=== PATIENT | female | born 1960 | race Two or more races ===

== ENCOUNTER 2023-06-26 13:36 | Outpatient (AMB) | payer MEDICAID, SELFPAY ==
[2023-06-26 14:09] VITALS: BP 150/90; PULSE 81; O2SAT 96; BMI 29.9
--- NOTE | 2023-06-26 14:09 | HO.NEPHOV ---
HPI HPI Comments History of Present Illness Details Thank you for referring Alba for evaluation of severe electrolyte imbalance. 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 She has history of distal SMA occlusion. She has been found to have persistent low potassium, low calcium and low magnesium. She also has chronic diarrhea since bowel resection. Her blood pressure has been high normal. She denies any nausea, vomiting. She is not known to have urinary losses. Her diarrhea is better on loperamide. She is on calcium, magnesium and potassium replacements. She is also on PPI. She has no history of excess alcohol intake. She has no chest pain, shortness of breath, proximal nocturnal dyspnea, orthopnea or pedal edema. She denied any other systemic complaints. 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) Surgical History (Updated 06/26/23 @ 14:05 by Ethel Benson MA) History of tubal ligation H/O resection of small bowel Family History (Updated 06/26/23 @ 14:06 by Ethel Benson MA) Mother Alzheimer disease Father Stroke Myocardial infarct Social History (Updated 06/26/23 @ 14:07 by Ethel Benson MA) Patient Tobacco Use Status: Current everyday Tobacco user Vital Signs 06/26/23 14:09 Height 5 ft 2 in Weight 163 lb 8 oz BMI 29.9 BP 150/90 H Blood Pressure Location Rt brachial Position Sitting Pulse 81 Pulse Source Pulse Oximeter Pulse Oximetry (%) 96 Oxygen Delivery Method Room Air Physical Exam Vital Signs: Last Vital Signs Pulse 81 06/26/23 14:09 BP 150/90 H 06/26/23 14:09 Pulse Ox 96 06/26/23 14:09 Oxygen Delivery Method Room Air 06/26/23 14:09 BMI result Body Mass Index 29.9 Const General: comfortable and no acute distress Orientation/consciousness: patient oriented x3 HEENT Head: Yes normocephalic Mouth: Normal oral and palatal mucosa present Eyes EOM: EOMs intact bilaterally Neck Neck: Yes supple Resp Auscultation: clear to auscultation bilaterally Cardio Jugular venous distension: no JVD Rate: regular rate GI Palpation (GI): Soft to palpation Auscultation: normal bowel sounds General: Yes no CVA tenderness Back/Spine/Pelvis Back: no CVA tenderness Skin General skin exam: no rashes or lesions noted Neuro General: patient oriented x3 and moves all extremities Extrem General: Yes no pedal edema Assessment & Plan Assessment & Plan (1) Hypokalemia: Code(s): E87.6 - Hypokalemia (2) Hypocalcemia: Code(s): E83.51 - Hypocalcemia (3) Hypomagnesemia: Code(s): E83.42 - Hypomagnesemia Plan Alba has multiple electrolyte abnormalities most likely due to GI loss. She has been having diarrhea. Her renal function normal. She is taking calcium, magnesium and potassium supplements. I ordered blood work. It is unlikely that she is having renal losses. I asked her to increase her loperamide. Her potassium supplementation was increased to 20 mEq twice daily. She is going to repeat blood work in a few weeks. Given her blood pressure is high normal/borderline high, I plan to start her on spironolactone and wean her off potassium supplementation. She needs to increase free water intake as well. Her serum albumin is low and I suggested to increase protein intake. She most likely has malabsorption. She needs to follow-up with needle loom operator helper. I did not make any other medication changes at this visit. All her questions and concerns were addressed. Time spent retrieving data, patient encounter and recommendation 49 minutes. Follow-up given. Orders: Orders Blood Urea Nitrogen Today E87.6 - Hypokalemia Electrolytes Today E87.6 - Hypokalemia Aldosterone Today E87.6 - Hypokalemia Creatinine Today E87.6 - Hypokalemia Magnesium Today E87.6 - Hypokalemia Coding Level of Care Code New Pt Level 4 (94420) Diagnoses Hypokalemia E87.6 Hypocalcemia E83.51 Hypomagnesemia E83.42 Results Reviewed Nephrology Results: No Data to Display
== END 2023-06-26 14:50 | disposition home or self-care (01) ==
PROVIDERS: PCP Internal Medicine; Visit Provider Internal Medicine Nephrology
DX: E87.6 Hypokalemia (principal); E83.51 Hypocalcemia; E83.42 Hypomagnesemia
CPT/HCPCS: 99204

== ENCOUNTER → 2023-06-26 13:36 | Outpatient (BNVA) | payer MEDICAID, SELFPAY | PROVIDERS: PCP Internal Medicine; Visit Provider Internal Medicine Nephrology | DX: E87.6 Hypokalemia (principal); E83.51 Hypocalcemia; E83.42 Hypomagnesemia | CPT/HCPCS: 99202 ==

== ENCOUNTER 2023-07-16 13:40 | Outpatient (REF) | payer MEDICAID, SELFPAY | END 2023-07-16 13:41 | disposition home or self-care (01) | LOC: HO.HKASLDS 13:40 | PROVIDERS: Visit Provider Internal Medicine Nephrology | DX: E87.6 Hypokalemia (principal) | CPT/HCPCS: 36415; 80051; 82088; 82565; 83735; 84520 ==

== ENCOUNTER 2023-07-24 13:42 | Outpatient (AMB) | payer MEDICAID, SELFPAY ==
[2023-07-24 13:49] VITALS: BP 130/80; PULSE 89; O2SAT 99; BMI 29.7
--- NOTE | 2023-07-24 13:49 | HO.NEPHOV ---
HPI HPI Comments History of Present Illness Details Alba was seen for follow up of severe electrolyte imbalance. 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 She has history of distal SMA occlusion. She has been found to have persistent low potassium, low calcium and low magnesium. She also has chronic diarrhea since bowel resection which has been better with medication change. She denies any nausea, vomiting. She is not known to have urinary losses. Her diarrhea is better on loperamide. She is on calcium, magnesium and potassium replacements. She is also on PPI. She has no history of excess alcohol intake. She has no chest pain, shortness of breath, proximal nocturnal dyspnea, orthopnea or pedal edema. She denied any other systemic complaints. 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) Surgical History History of tubal ligation H/O resection of small bowel Family History Mother Alzheimer disease Father Stroke Myocardial infarct Social History Patient Tobacco Use Status: Current everyday Tobacco user Vital Signs 07/24/23 13:49 Height 5 ft 2 in Weight 162 lb 8 oz BMI 29.7 BP 130/80 Blood Pressure Location Lt brachial Position Sitting Pulse 89 Pulse Source Pulse Oximeter Pulse Oximetry (%) 99 Oxygen Delivery Method Room Air Physical Exam Vital Signs: Last Vital Signs Pulse 89 07/24/23 13:49 BP 130/80 07/24/23 13:49 Pulse Ox 99 07/24/23 13:49 Oxygen Delivery Method Room Air 07/24/23 13:49 BMI result Body Mass Index 29.7 Const General: comfortable and no acute distress Orientation/consciousness: patient oriented x3 HEENT Head: Yes normocephalic Mouth: Normal oral and palatal mucosa present Eyes EOM: EOMs intact bilaterally Neck Neck: Yes supple Resp Auscultation: clear to auscultation bilaterally Cardio Jugular venous distension: no JVD Rate: regular rate GI Palpation (GI): Soft to palpation Auscultation: normal bowel sounds General: Yes no CVA tenderness Back/Spine/Pelvis Back: no CVA tenderness Skin General skin exam: no rashes or lesions noted Neuro General: patient oriented x3 and moves all extremities Extrem General: Yes no pedal edema Assessment & Plan Assessment & Plan (1) Hypomagnesemia: Code(s): E83.42 - Hypomagnesemia (2) Hypocalcemia: Code(s): E83.51 - Hypocalcemia (3) Hypokalemia: Code(s): E87.6 - Hypokalemia Plan Alba has multiple electrolyte abnormalities most likely due to GI loss. She has been having diarrhea. Her renal function normal. She is taking calcium, magnesium and potassium supplements. It is unlikely that she is having renal losses. I asked her to increase her loperamide. Her potassium supplementation was increased to 20 mEq twice daily. She is going to repeat blood work . Given her blood pressure is high normal/borderline high, I plan to start her on spironolactone and wean her off potassium supplementation with time. She needs to increase free water intake as well. Her serum albumin is low and I suggested to increase protein intake. She most likely has malabsorption. She needs to follow-up with leather goods maker. I did not make any other medication changes at this visit. All her questions and concerns were addressed. Orders: Orders Electrolytes Today E83.42 - Hypomagnesemia, E83.51 - Hypocalcemia, E87.6 - Hypokalemia Calcium Today E83.42 - Hypomagnesemia, E83.51 - Hypocalcemia, E87.6 - Hypokalemia Blood Urea Nitrogen Today E83.42 - Hypomagnesemia, E83.51 - Hypocalcemia, E87.6 - Hypokalemia Creatinine Today E83.42 - Hypomagnesemia, E83.51 - Hypocalcemia, E87.6 - Hypokalemia Magnesium Today E83.42 - Hypomagnesemia, E83.51 - Hypocalcemia, E87.6 - Hypokalemia Coding Level of Care Code Est Pt Level 3 (55296) Diagnoses Hypomagnesemia E83.42 Hypocalcemia E83.51 Hypokalemia E87.6 Results Reviewed Nephrology Results: Sodium 142 mmol/L (135-145) 07/16/23 Potassium 3.7 mmol/L (3.3-5.1) 07/16/23 Chloride 111 mmol/L (96-108) H 07/16/23 Carbon Dioxide 25 mmol/L (22-29) 07/16/23 BUN 15 mg/dL (9-16) 07/16/23 Creatinine 0.86 mg/dL (0.5-1.4) 07/16/23
== END 2023-07-24 14:03 | disposition home or self-care (01) ==
PROVIDERS: PCP Internal Medicine; Visit Provider Internal Medicine Nephrology
DX: E83.42 Hypomagnesemia (principal); E83.51 Hypocalcemia; E87.6 Hypokalemia
CPT/HCPCS: 99213

== ENCOUNTER → 2023-07-24 13:42 | Outpatient (BNVA) | payer MEDICAID, SELFPAY | PROVIDERS: PCP Internal Medicine; Visit Provider Internal Medicine Nephrology | DX: E83.42 Hypomagnesemia (principal); E83.51 Hypocalcemia; E87.6 Hypokalemia | CPT/HCPCS: 99212 ==

== ENCOUNTER 2023-10-23 13:29 | Outpatient (AMB) | payer MEDICAID, SELFPAY ==
[2023-10-23 13:32] VITALS: BP 100/72; PULSE 75; O2SAT 100; BMI 29.6
--- NOTE | 2023-10-23 13:32 | HO.NEPHOV ---
HPI HPI Comments History of Present Illness Details Alba was seen for follow up for H/O severe electrolyte imbalance. 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 She has history of distal SMA occlusion. She has been found to have persistent low potassium, low calcium and low magnesium. She also has chronic diarrhea since bowel resection which has been better with medication change. She denies any nausea, vomiting. She is not known to have urinary losses. Her diarrhea is better on loperamide. She is on calcium, magnesium and potassium replacements. She is also on PPI. She has no history of excess alcohol intake. She has no chest pain, shortness of breath, proximal nocturnal dyspnea, orthopnea or pedal edema. She denied any other systemic complaints. 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) Surgical History History of tubal ligation H/O resection of small bowel Family History Mother Alzheimer disease Father Stroke Myocardial infarct Social History Patient Tobacco Use Status: Current everyday Tobacco user Vital Signs 10/23/23 13:32 Height 5 ft 2 in Weight 162 lb 2 oz BMI 29.6 BP 100/72 Blood Pressure Location Lt brachial Position Sitting Pulse 75 Pulse Source Pulse Oximeter Pulse Oximetry (%) 100 Oxygen Delivery Method Room Air Physical Exam Vital Signs: Last Vital Signs Pulse 75 10/23/23 13:32 BP 100/72 10/23/23 13:32 Pulse Ox 100 10/23/23 13:32 Oxygen Delivery Method Room Air 10/23/23 13:32 BMI result Body Mass Index 29.6 Const General: comfortable and no acute distress Orientation/consciousness: patient oriented x3 HEENT Head: Yes normocephalic Mouth: Normal oral and palatal mucosa present Eyes EOM: EOMs intact bilaterally Neck Neck: Yes supple Resp Auscultation: clear to auscultation bilaterally Cardio Jugular venous distension: no JVD Rate: regular rate GI Palpation (GI): Soft to palpation Auscultation: normal bowel sounds General: Yes no CVA tenderness Back/Spine/Pelvis Back: no CVA tenderness Skin General skin exam: no rashes or lesions noted Neuro General: patient oriented x3 and moves all extremities Extrem General: Yes no pedal edema Assessment & Plan Assessment & Plan (1) Hypomagnesemia: Code(s): E83.42 - Hypomagnesemia (2) Hypocalcemia: Code(s): E83.51 - Hypocalcemia (3) Hypokalemia: Code(s): E87.6 - Hypokalemia Plan Alba has multiple electrolyte abnormalities most likely due to GI loss. She occasionally gets diarrhea. Her renal function normal. She is taking calcium, magnesium and potassium supplements. It is unlikely that she is having renal losses. I asked her to C/W current dose of loperamide. Her potassium supplementation was increased to 20 mEq twice daily. She is going to repeat blood work . She needs to follow-up with town administrator. I did not make any other medication changes at this visit. All her questions and concerns were addressed. Orders: Orders Calcium Today E83.42 - Hypomagnesemia, E83.51 - Hypocalcemia, E87.6 - Hypokalemia Electrolytes Today E83.42 - Hypomagnesemia, E83.51 - Hypocalcemia, E87.6 - Hypokalemia Magnesium Today E83.42 - Hypomagnesemia, E83.51 - Hypocalcemia, E87.6 - Hypokalemia Coding Level of Care Code Est Pt Level 4 (23109) Diagnoses Hypomagnesemia E83.42 Hypocalcemia E83.51 Hypokalemia E87.6 Results Reviewed Nephrology Results: Sodium 142 mmol/L (135-145) 07/16/23 Potassium 3.7 mmol/L (3.3-5.1) 07/16/23 Chloride 111 mmol/L (96-108) H 07/16/23 Carbon Dioxide 25 mmol/L (22-29) 07/16/23 BUN 15 mg/dL (9-16) 07/16/23 Creatinine 0.86 mg/dL (0.5-1.4) 07/16/23
== END 2023-10-23 13:47 | disposition home or self-care (01) ==
PROVIDERS: PCP Internal Medicine; Visit Provider Internal Medicine Nephrology
DX: E83.42 Hypomagnesemia (principal); E83.51 Hypocalcemia; E87.6 Hypokalemia
CPT/HCPCS: 99214

== ENCOUNTER → 2023-10-23 13:29 | Outpatient (BNVA) | payer MEDICAID, SELFPAY | PROVIDERS: PCP Internal Medicine; Visit Provider Internal Medicine Nephrology | DX: E83.42 Hypomagnesemia (principal); E83.51 Hypocalcemia; E87.6 Hypokalemia | CPT/HCPCS: 99212 ==

== ENCOUNTER 2024-10-20 10:41 | Outpatient (REF) | payer OTHER, SELFPAY ==
--- OUTSIDE RECORDS SUMMARY | 2024-10-20 12:17 | XMS_ITS | Encounter Summary ---
Author Organization [facility] Address [address] [place] [address] Care Team Providers Care Candy Wrapping Machine Operator Name Role Phone Roge Rodriguez MD Primary Care Provider [phone] Reason for Visit * Reason Onset Date Comments PT1 10/14/2024 Encounter Details Date Type Department Care Team (Late st Contact Info) Description 10/14/2024 Telephone Internal Medicine - [place] [address] [place] [id number] Roge Rodriguez MD [address] [place] [address] PT1 Social History Tobacco Use Types Packs/Day Years Used Date Smoking Tobacco: Every Day Smokeless Tobacco: Never Alcohol Use Standard Drinks/Week Comments No 0 (1 standard drink = 0.6 oz pur e alcohol) Comments No Sex and Gender Information Value Date Recorded Sex Assigned at Female 06/08/2024 2:12 PM EST Legal Sex Female 1:07 AM EST Gender Identity Female 06/08/2024 2:12 PM EST Sexual Orientation Choose not to disclose 2023 2:12 PM EST documented as of this encounter Progress Notes * Marlen Baeza MA - 10/15/2024 8:38 AM EDT Submitted * Radha Cotto - 10/14/2024 4:22 PM EDT [employer] new provider or submitter number is [id number] Verify and document patients [place] Health insurance ID # (NOT [facility] ID): [id number] Payor: COMMERCIAL INSURANCE / Plan: COMMERCIAL INSURANCE / Product Type: OTHER Patient mailing address: [address] Telephone Information: Work Phone Not on file. Mobile Not on file. Pt. demographics verified? yes If not accurate, update registration. Is this a NEW request or a RENEWAL? NEW Name of treating facility: [facility] Name (first & last) of treating provider? required : unknown What is the medical reason why the patient is seeing the above provider? Cyst in stomach Address/Zip code for treating provider: [address] Phone # for treating provider: Is the provider in the [email or web address] network (do they accept [place] Health insurance)? yes What specialtly is this provider? Gastroenterology When is the visit scheduled for? 10/25/24 How often you will be seeing this particular provider? 3x a year Do you have friends or family who can transport you to this visit? no If yes, do not complete request. Is there anything stopping you from using public transportation? If yes, explain. : yes Is there a medical reason (diagnosis) why you are unable to use public transportation? If yes, explain: kidney failure Does patient carry self-administered oxygen? no Does patient require door through door or room to room service( ex: member cannot ambulate or wait independently outside their home/facility for transportation. No Is this is for an Adult Day Program or Suboxone clinic not examined If yes to above what is arrival time N/A and what is departure time N/A If yes to above how many days a week? N/A Do you need a wheelchair van? NO If you use a wheelchair what is the height, width & length of the wheelchair? N/A Do you need an escort to accompany you? If yes, explain why. NO Will you have an alternative pick-up address? NO Do you have a service animal? NO PT DOES NOT NEED RELEASE OF INFORMATION SIGNED documented in this encounter Plan of Treatment Upcoming Encounters Date Type Department Care Team ([facility] st Contact Info) Description 10/27/2024 10:45 AM EDT Office Visit Orthopedics - [place] [address] [place] [address] Raj Farrell PA [address] [place] [address] documented as of this encounter Visit Diagnoses Not on filedocumented in this encounter Care Teams Candy Wrapping Machine Operator Relationship Specialty Start Date End Date Roge Rodriguez MD [address] [place] [id number] PCP - General Internal Medicine 12/15/18 documented as of this encounter
--- OUTSIDE RECORDS SUMMARY | 2024-10-20 12:17 | XMS_ITS | Clinical Summary ---
Author Organization [facility] Facility Address [address] [address] Care Team Providers Care Dining Car Steward Name Role Phone Roge Rodriguez MD Primary Care Provider [phone] Social History Tobacco Use Types Packs/Day Years Used Date Smoking Tobacco: Never Assessed Comments Unknown Sex and Gender Information Value Date Recorded Sex Assigned at Not on file Legal Sex Female 10:38 AM EST Gender Identity Not on file Sexual Orientation Not on file Plan of Treatment Health Maintenance Due Date Last Done Comments Breast Cancer Screening 1961 Colorectal Cancer Screening: Annual FOBT 2010 Colorectal Cancer Screening: Colonoscopy 2010 Colorectal Cancer Screening: Sigmoidoscopy 2010 Influenza Vaccine (Season Ended) 2025 Hepatitis B Vaccine Aged Out No longe r eligible based on patient's age to complete this topic Pneumococcal Vaccine: Pediat rics (0 to 5 Years) and At-Risk Patients (6 to 64 Years) Aged Out No longer eligible b ased on patient's age to complete this topic [place] [address] [place] [address] MEDICAID MEDICAID [place] Care Teams Dining Car Steward Relationship Specialty Start Date End Date Roge Rodriguez MD [address] [place] [id number] PCP - General Internal Medicine 05/29/22
--- OUTSIDE RECORDS SUMMARY | 2024-10-20 12:17 | XMS_ITS | Clinical Summary ---
Author Organization [facility] Address [address] [place] [address] Care Team Providers Care Aircraft Machinist Name Role Phone Roge Rodriguez MD Primary Care Provider Unavailab le Medications Medication Sig Dispensed Refills Start Date End Date Status apixaban (ELIQUIS) 5 MG TABS tablet Take 1 tablet (5 mg total) by mouth every 12 (twelve) hours. 0 Active montelukast (SINGULAIR) 10 MG tablet Take 1 tablet (10 mg total) by mouth every night at bedtime. 0 Active omeprazole (PriLOSEC) 20 MG capsule Take 1 capsule (20 mg total) by mouth daily. 0 Active fluticasone (FLONASE) 50 MCG/ACT nasal spray spray/apply 1 spray in each nostril daily. 0 Active fluticasone (FLOVENT HFA) 220 MCG/ACT inhaler Inhale 1 puff into the lungs 2 (two) times a day. 0 Active Albuterol Sulfate, sensor, 108 (90 Base) MCG/ACT AEPB Inhale into the lungs. 0 Active Melatonin 5 MG TABS Take by mouth. 0 A ctive docusate sodium (COLACE) 100 MG capsule Take 1 capsule (100 mg total) by mouth 2 (two) times a day. 0 Active azelastine (ASTELIN) 0.1 % nasal spray spray or apply 1 spray inside Nose 2 (two) times a day. Use in each nostril as directed 0 Active loratadine (Claritin) 10 MG tablet Take 1 tablet (10 mg total) by mouth daily. 0 Active hydrocortisone 1 % cream Apply topically 2 (two) times a day. 0 Active Saccharomyces boulardii (Probiotic) 250 MG CAPS Take by mouth. 0 Active ketotifen (ZADITOR) 0.025 % ophthalmic solution 1 drop 2 (two) times a day. 0 Active levocetirizine (XYZAL) 5 MG tablet Take 1 tablet (5 mg total) by mouth every evening. 0 Active Cholecalciferol (Vitamin D) 50 MCG (2000 UT) tablet Take 2,000 Units by mouth daily. 0 Active magnesium oxide 400 (240 Mg) MG TABS tablet Take 1 tablet (400 mg total) by mouth 2 (two) times a day. 0 Active Social History Tobacco Use Types Packs/Day Years Used Date Smoking Tobacco: Every Day Cigarettes Tobacco Cessation:Ready to Q uit: Not Asked; Counseling Given: Not Answered Comments:Smokes 1 pack every 3 days Alcohol Use Standard Drinks/Week Comments Yes 0 (1 standard drink = 0.6 oz pur e alcohol) Rare Sex and Gender Information Value Date Recorded Sex Assigned at Female 07/03/2023 2:58 PM EST Gender Identity Not on file Sexual Orientation Not on file Job Start Date Occupation Industry Not on file Not on file Not on file Last Filed Vital Signs Vital Sign Reading Time Taken Comments Blood Pressure 143/67 09/01/2023 12:57 PM EST Pulse 65 09/01/2023 12:57 PM EST Temperature 36.9 ??C (98.4 ??F) 09/01/2023 1 2:57 PM EST Respiratory Rate - - Oxygen Saturation 100% 09/01/2023 12: 57 PM EST Inhaled Oxygen Concentration - - Weight 72.5 kg (159 lb 12.8 oz) 024 12:57 PM EST Height 154.9 cm (5' 1 ) 09/01/2023 12:5 7 PM EST Body Mass Index 30.19 09/01/2023 12:57 PM EST Plan of Treatment Health Maintenance Due Date Last Done Comments Hepatitis C Screening 1961 Depression Screening 1973 Preventative Health Evaluation 12/01/1979 DTap / Tdap / Td (1 - Tdap) 1980 Cervical Cancer Screening (Pap Smear) 1982 Colon Cancer Screening (Colonoscopy) 2006 Breast Cancer Screening (Mammogram) 12/01/2011 Pneumococcal Vaccine (2 of 2 - PPSV23 or PCV20) 08/12/2016 06/17/2016 Shingrix-Zoster Vaccine (2 o f 2) 12/28/2021 11/02/2021 COVID-19 Vaccine (2023-2 5 season) 2024 12/07/2020, 11/16/2020 Influenza Vaccine (#1) 2024 RSV Adult > 60+ Yrs or (1 - 1-dose 75+ series) 2036 Hepatitis B Vaccines Aged Out No long er eligible based on patient's age to complete this topic RSV Ped < 20 months Aged Out No longe r eligible based on patient's age to complete this topic Care Teams Aircraft Machinist Relationship Specialty Start Date End Date Roge Rodriguez MD PCP - General Internal Medicine 07/03/23
--- OUTSIDE RECORDS SUMMARY | 2024-10-20 12:17 | XMS_ITS | Referral Summary ---
Author Organization [facility] Address [address] [place] [address] Care Team Providers Care Will Call Order Clerk Name Role Phone Roge Rodriguez MD Primary Care Provider [phone] Allergies Active Allergy Reactions Criticality Noted Date Comments Latex Unknown 03/19/2023 Medications acetaminophen (TYLENOL) 325 mg tablet Take 650 mg by mouth every 6 hours as needed for pain. Active albuterol (PROAIR HFA,VENTOLIN HFA) 90 mcg inhaler Inhale 2 puffs by mouth every 6 hours as needed for wheezing or shortness of breath. Use with spacer. Active aluminum-magnesium hydroxide-simethic one (MAALOX) 200-200-20 mg/5 mL suspension Take 30 mL by mouth every 4 hours as needed for heartburn. Active cetirizine (ZyrTEC) 10 mg tablet Take 5 mg by mouth once a day. Active pancrelipase, rfmygp-nustflfc-eq ylase, (Creon) 12,000-38,000 -60,000 unit capsule Take 1 capsule by mouth 3 times a day with meals. Lipase Protease- Amylase 65503-70914 UNIT 1 capsule PO before meals Active fluticasone propionate (FLONASE) 50 mcg/actuation nasal spray Administer 1 spray into each nostril once a day. Active lactobacillus acidophilus-L. bulgaricus (Floranex) 1 million cell tablet Take 1 tablet by mouth 2 times a day. Active ipratropium-albute roL (DUO-NEB) 0.5-2.5 mg/3 mL nebulizer solution Inhale 3 mL via nebulizer 4 times a day. Active melatonin 3 mg tablet Take 5 mg by mouth nightly as needed for sleep. Active montelukast (SINGULAIR) 10 mg tablet Take 10 mg by mouth nightly. Active B complex-vitamin C-folic acid 0.8 mg tablet Take 1 tablet by mouth once a day. Active ondansetron (ZOFRAN ODT) 4 mg disintegrating tablet Dissolve 4 mg in the mouth every 8 hours as needed for nausea or vomiting. Active famotidine (PEPCID) 20 mg tablet Take 20 mg by mouth 2 times a day. Active senna (SENOKOT) 8.6 mg tablet Take 1 tablet by mouth daily as needed for constipation. Active vitamin A 3,000 mcg (10,000 unit) capsule Take 10,000 Units by mouth once a day. Active ergocalciferol (VITAMIN D2) 1,250 mcg (50,000 unit) capsule Take 50,000 Units by mouth once a week. Every friday Active vitamin E 45 mg (100 unit) capsule Take 100 Units by mouth once a day. Active apixaban (ELIQUIS) 5 mg tablet Take 1 tablet (5 mg total) by mouth every 12 hours. 03/31/20 Active vitamin B complex-vitamin C-folic acid (NEPHROCAPS) 1 mg capsule Take 1 capsule by mouth once a day. 04/01/20 Active bisacodyL (DULCOLAX) 10 mg suppository Insert 1 suppository (10 mg total) into the rectum daily as needed for constipation. 04/16/20 Active magnesium hydroxide (MILK OF MAGNESIA) 400 mg/5 mL suspension Take 30 mL by mouth daily as needed for constipation. Every 8 hours as needed for constipation 04/16/20 Active fluconazole (DIFLUCAN) 150 mg tablet Take 1 tablet (150 mg total) by mouth once a day. 1 tablet 04/16/20 Active Active Problems Problem Noted Date Diagnosed Date Activity of daily living alteration 04/16/2023 Gastroesophageal reflux disease without esophagi tis 04/12/2023 Assessment & Plan (04/13/2023 8:35 PM EDT): Continue home famotidine daily and Maalox as needed Assessment & Plan (04/12/2023 10:38 PM EDT): Continue home famotidine daily and Maalox as needed Transaminitis 03/28/2023 Assessment & Plan (03/29/2023 12:57 PM EDT): Patient found with elevated transaminases and alk phos. CT abdomen pelvis with gallbladder wall thickening. Patient was evaluated by general surgery in the ICU, no concern for mesenteric and low concern for cholecystitis or cholangitis. Patient's transaminitis improved and ultrasound done on 03/28 showed a 4 mm common bile duct. Suspect that there may have been transient obstruction of the common bile duct which would lead to her elevation of liver enzymes, but they are improving at this time. 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 Currently not on TPN, removed on prior admission iso bacteremia. 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 The patient reports that she has been on TPN for [facility] at [facility]. On further discussion with her she reports that her PCP had wanted to take her off the PPI. TPN was discontinued as the patient was bacteremic during this admission. -Creon 12,000 units 3 times a day with meals -Vitamin D daily, vitamin A, vitamin B complex, vitamin D supplementation History of pulmonary embolism 03/24/2023 Assessment & Plan (04/13/2023 8:31 PM EDT): History of pulmonary embolism in July 2022 now on apixaban 5 mg q12h from facility. -Continue home anticoagulation Assessment & Plan (04/12/2023 10:38 PM EDT): History of pulmonary embolism in July 2022 now on apixaban 5 mg q12h from facility. 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 -Lovenox 80 mg subcu -CBC daily -Switch back to Eliquis prior to discharge Asthma 03/24/2023 Assessment & Plan (04/13/2023 8:31 PM EDT): Known asthma. Not in acute exacerbation. Continue home budesonide nebulizers q12h and DuoNebs as needed. - Duo nebs PRN - Budesonide nebs BID Assessment & Plan (04/12/2023 10:39 PM EDT): Continue home budesonide nebulizers q12h and DuoNebs as needed Assessment & Plan (03/28/2023 4:16 PM EDT): Patient with history of asthma. Home meds: Albuterol and DuoNebs as needed -Incentive spirometry -Albuterol and DuoNebs as prescribed -Continuous pulse ox Resolved Problems Problem Noted Date Diagnosed Date Resolved Date Urinary tract infection 04/12/2023 1010/2022 Assessment & Plan (04/15/2023 2:44 PM EDT): Presenting from the [facility] with concern for confusion to be off her baseline of alert and oriented x3, not oriented to location and thinking she is at home and asking about her grandchildren to facility staff she was sent to the emergency department. Patient does have history of UTIs in the past and was recently hospitalized and requiring admission to the ICU for septic shock with presumed urine source at that time and admitted through 04/01 for such. Urine culture growing VRE for which she was treated on linezolid, also growing Klebsiella in her blood treated with ceftriaxone, question of line associated infection at that time as she was on TPN then but is no longer. Work-up showing positive UA believed to be presumed septic source. UA positive and showing ketones, blood, 3+ leuk esterase, 119 WBC, >180 RBC, bacteria. On exam, does have suprapubic tenderness and she is complaining of dysuria. CTAP negative for acute abnormality. On admission, mentation is improved and she is alert and oriented x3 but is lethargic and limited in answering questions. ID consulted, appreciate rec's. Blood cultures neg. Dc'd linezolid (04/12-04/15). Ucx growing e.coli. - c/w ceftriaxone 1 g daily (D1 04/12) -follow ucx sensitivities Assessment & Plan (04/12/2023 11:20 PM EDT): Patient presenting from the [facility] where she is currently residing with concern for confusion to be off her baseline of alert and oriented x3, not oriented to location and thinking she is at home and asking about her grandchildren to facility staff she was sent to the emergency department. Patient does have history of UTIs in the past and was recently hospitalized and requiring admission to the ICU for septic shock with presumed urine source at that time and admitted through 04/01 for such. Urine culture growing VRE for which she was treated on linezolid, also growing Klebsiella in her blood treated with ceftriaxone, question of line associated infection at that time as she was on TPN then but is no longer. In the emergency department CT head was negative. Vitals notable for temp 100.2 F and tachycardia meeting 2 out of 4 SIRS criteria. Work-up showing positive UA believed to be presumed septic source. UA positive and showing ketones, blood, 3+ leuk esterase, 119 WBC, >180 RBC, bacteria. On exam does have suprapubic tenderness and she is complaining of dysuria. CTAP negative for acute abnormality. On admission mentation is improved and she is alert and oriented x3 but is lethargic and limited in answering questions. -Continue linezolid 600 mg q12h (D1 04/12) -Started on ceftriaxone 1 g daily (D1 04/12) -ID consult in the morning -Blood cultures pending -Urine culture pending Vaginal foreign object, initial encounter 04/12/2023 04/16/2023 Assessment & Plan (04/15/2023 2:53 PM EDT): Communication from nursing staff on admission that patient was found to have purulent greenish/brown discharge coming from her vagina and on emergency department pelvic exam was found to have foreign body dressing inserted within her vagina again with purulent discharge. Patient complaining of discomfort in the area and nursing noting concern for yeast skin infection. In talking to the patient, she was not aware of foreign body and is confused on admission. Could represent possible sources of infection though less likely given positive urinalysis, though could represent underlying cause. On 04/13 the patient's nurse noted significant stool in the vagina, however in the setting of diaper, may be due to confinement of stool. OBGYN consulted, appreciate rec's. Initially concerned for rectovaginal fistula, but CTAP and OB exam made this unlikely. Clarification with ED physicians per OB, patient did not have gauze in her vagina. Rather, patient was in a diaper and having diarrhea, which may have contaminated vagina. -Miconazole cream twice daily -Monitor clinically and IV antibiotics as per UTI section -Monitor for further stool in vagina, minimize diaper use if possible -Maintain good hygiene to genitals -dc mckeon for purewick -follow vaginitis panel, chlamydia/gonorrhea PCR Assessment & Plan (04/12/2023 10:52 PM EDT): Communication from nursing staff on admission that patient was found to have purulent greenish/brown discharge coming from her vagina and on emergency department pelvic exam was found to have foreign body dressing inserted within her vagina again with purulent discharge. Patient complaining of discomfort in the area and nursing noting concern for yeast skin infection. In talking the patient she was not aware of foreign body and is confused on admission. Could represent possible sources of infection though less likely given positive urinalysis, though could represent underlying cause. -Miconazole cream twice daily -Monitor clinically and IV antibiotics as per UTI section Acute metabolic encephalopathy 04/12/2023 04/16/2023 Assessment & Plan (04/13/2023 8:35 PM EDT): Management per UTI section Assessment & Plan (04/12/2023 10:59 PM EDT): Management per UTI section Asymptomatic bacteriuria 03/29/2023 Assessment & Plan (03/29/2023 1:00 PM EDT): Patient was found to have vancomycin-resistant Enterococcus in her urine during her broad sepsis work-up initiated in the ICU. Patient was originally placed on linezolid, but patient denies any dysuria. On discussion with ID it was felt that it would be appropriate to stop treatment for the asymptomatic bacteriuria, especially given that we are treating bacteremia which is the more likely source of her sepsis. -Monitor for urinary symptoms Diarrhea 03/28/2023 04/01/2023 Assessment & Plan (03/31/2023 5:25 PM EDT): Patient reported multiple loose stools today in the setting of IV linezolid and ceftriaxone for treatment of Klebsiella bacteremia. Patient's urine cultures also noted to grow VRE. Concern for C. Difficile, negative for C. Difficile. Diarrhea resolved. RESOVLED DANNY (acute kidney injury) 03/25/2023 Sepsis without acute organ dysfunction 03/24/2023 04/16/2023 Assessment & Plan (04/13/2023 8:30 PM EDT): Management per UTI section Assessment & Plan (04/12/2023 10:58 PM EDT): Management per UTI section Assessment & Plan (03/30/2023 12:45 PM EDT): Patient presents to the ED initially on 03/19 for fever during chemotherapys, chills, myalgias, headaches. She was initially discharged with a currently 3-day course of Cipro. She returned on 03/24 persistent fevers and chills. CXR was negative. UA with positive leukocyte esterase and 10 white blood cells. The patient was initially started on Zosyn. The patient was admitted to the ICU for treatment of septic shock, requiring Levophed. The patient improved in the ICU and was stepdown to the floor for continued management. Her blood culture grew Klebsiella and urine cultures grew VRE. Source of infection is unclear at this time, there is suspicion that her pick that up in place for the last 8 months may have been the cause. CT abdomen pelvis with some concern for cystitis versus enteritis versus biliary pathology, but repeat ultrasound of the gallbladder shows no cholecystitis and patient has not had any dysuria. The patient did have an elevated alk phos on admission though that is now downtrending. UCX growing E. Faecium, but thought to be asymptomatic bacteriuria and stopped linezolid -See bacteremia problem for treatment related to the bacteremia -Monitor fever and WBC curve Bacteremia 03/24/2023 04/01/2023 Assessment & Plan (03/31/2023 5:25 PM EDT): Blood culture grew Klebsiella. Infection possibly related to long-term PICC that patient had been using for TPN. CT abdomen pelvis with some concern for cystitis versus enteritis versus biliary pathology. The patient did have an elevated alk phos on admission though that is now downtrending. PICC line removed on 03/29. Completed final dose of ceftriaxone on 03/31. -ID consulted, appreciate recs Social History Tobacco Use Types Packs/Day Years Used Date Smoking Tobacco: Former Cigarettes 0.3 41 1 980 - 2020 Smokeless Tobacco: Never Alcohol Use Standard Drinks/Week Comments Not Currently 0 (1 standard drink = 0.6 oz pur e alcohol) Comments No Sex and Gender Information Value Date Recorded Sex Assigned at Not on file Legal Sex Female 5:32 PM EDT Gender Identity Not on file Sexual Orientation Not on file Last Filed Vital Signs Vital Sign Reading Time Taken Comments Blood Pressure 106/73 04/16/2023 2:32 PM EDT Pulse 97 04/16/2023 2:32 PM EDT Temperature 36.6 ??C (97.9 ??F) 04/16/2023 2:32 PM ED T Respiratory Rate 16 04/16/2023 2:32 PM EDT Oxygen Saturation 97% 04/16/2023 2:32 PM EDT Inhaled Oxygen Concentration - - Weight 73 kg (161 lb) 04/12/2023 3:25 PM EDT Height 157.5 cm (5' 2 ) 04/12/2023 3:25 PM EDT Body Mass Index 29.45 04/12/2023 3:25 PM EDT Plan of Treatment Not on file Procedures * Due to [employer] law, this organization might not be sharing negative HIV tests. Procedure Name Priority Date/Time Associated Diagnosis Comments HEPATITIS C ANTIBODY W/REFLEX TO HCV RNA, QUANTITATIVE PCR STAT 03/19/2023 3:26 PM EDT from Last 3 Months or Most Recently Relevant to Health Maintenance Results * Due to [place] [employer] law, this organization might not be sharing negative HIV tests. * Hepatitis C Antibody w/Reflex to HCV RNA, Quantitative PCR (03/19/2023 3:26 PM EDT) Hepatitis C Antibody NON-REACT NELSON NON-REACT NELSON 03/20/2023 12:27 AM EDT [employer] Comment: HCV antibody was non-reactive. There is no laboratory evidence of HCV infection. In most cases, no further action is required. However, if recent HCV exposure is suspected, a test for HCV RNA (test code 49140) is suggested. For additional information please refer to http://education.ContactMonkey/faq/EBQ93z6 (This link is being provided for informational/ educational purposes only.) Blood Structure of peripheral vein / Unknown Venipuncture / Unknown 03/19/2023 3:26 PM EDT 03/19/2023 3:26 PM EDT Narrative [facility] - 03/20/2023 12:27 AM EDT [facility] Received Date: us Spencer Galeas MD LAB BLOOD ORDERABLES Final Res ult [facility] [address], [place] [address], [place] [phone] [employer] [facility] [address], [place] [address], [place] [phone] from Last 3 Months or Most Recently Relevant to Health Maintenance Additional Health Concerns Infection Onset Date Last Indicated VRE Enterococcus 01/18/2023 03/24/2023 Insurance [facility] Advance Directives Documents on File Type Date Recorded Patient Cow Buyer Expl anation MOLST 04/16/2023 1:04 PM 02-26-2023 MOLST 03/26/2023 10:38 AM 3 MOLST 03/25/2023 10:54 AM 3 Health Care Proxy 03/25/2023 10:54 AM 11- MOLST 03/24/2023 12:22 PM 3 MOLST 03/20/2023 6:34 AM 02-26-2023 Health Care Proxy 03/20/2023 6:34 AM 2021 * Full Code (Latest Code Status on File) Date Activated Date Inactivated Comments 04/12/2023 4:30 PM 04/16/2023 7:54 PM * Full Code Date Activated Date Inactivated Comments 03/24/2023 10:54 PM 04/01/2023 9:31 PM Healthcare Agents on File Name Relationship Healthcare Agent Relationshi p Communication Angela Vyas Daughter Health Care Agent Dilip Vincent Grandchild Alternate Health Care Agent Care Teams Will Call Order Clerk Relationship Specialty Start Date End Date Roge Rodriguez MD [address] [place] [id number] PCP - General Internal Medicine 11/25/22
--- OUTSIDE RECORDS SUMMARY | 2024-10-20 12:17 | XMS_ITS | Encounter Summary ---
Author Organization [facility] Address [address] [place] [address] Care Team Providers Care Transportation Maintenance Operator Name Role Phone Roge Rodriguez MD Primary Care Provider [phone] Reason for Visit * Imaging (Routine) - Closed Specialty Diagnoses / Procedures Referred By Tova t Referred To Contact Radiology Diagnoses Passage of loose stools Norovirus Other fatigue Dysphagia, unspecified type Procedures XR Esophagram Chau Logan PA [address] [address] Phone: tel: fax: [facility] CT Scan [address] [place] [address] Phone: tel: Referral ID Status Reason Start Date Expiration Date Visits Re quested Visits Authorized [id number] Closed 08/12/2024 08/12/2025 1 1 Encounter Details Date Type Department Care Team (Latest Contact Info) Description 10/14/2024 7:37 AM EDT - 10/14/2024 11:59 PM EDT Hospital Encounter [facility] Xray [address] [place] [address] Discharge Disposition: Home or Self Care Social History Tobacco Use Types Packs/Day Years [...] PM EST documented as of this encounter Medications at Time of Discharge ascorbic acid (VITAMIN C) 250 mg tablet Take 1 tablet (250 mg total) by mouth 1 (one) time each day. 08/23/2024 azelastine (ASTELIN) 137 mcg (0.1 %) nasal spray PUT 1 TO 2 SPRAYS INTO EACH NOSTRIL TWICE A DAY DIRECTED 09/27/2022 calcium carbonate 1,500 mg (600 mg elemental calcium) tablet Take 1 tablet (1,500 mg total) by mouth. 07/21/2023 cholecalciferol (VITAMIN D-3) 50 mcg (2,000 unit) tablet Take 1 tablet (2,000 Units total) by mouth. diaper,brief,seven lt, disposable (BRIEFS MIS) large 11/05/2022 dicyclomine (BENTYL) 10 mg capsule Take 1 capsule (10 mg total) by mouth 4 (four) times a day if needed (abdominal cramping). 60 capsule 11 08/12/2024 08/12/2025 diphenoxylate-at ropine (LOMOTIL) 2.5-0.025 mg per tablet Take 1 tablet by mouth 4 (four) times a day if needed for diarrhea. Max Daily Amount: 4 tablets 60 tablet 5 08/12/2024 docusate sodium (COLACE) 100 mg capsule TAKE 1 CAPSULE BY MOUTH TWICE A DAY 180 capsule 1 07/03/2024 Eliquis 5 mg tablet TAKE 1 TABLET BY MOUTH TWICE A DAY 60 tablet 5 08/23/2024 fluticasone HFA (FLOVENT HFA) 220 mcg/actuation inhaler Inhale 1 puff by mouth. 02/15/2022 fluticasone propionate (FLONASE) 50 mcg/actuation nasal spray 1 spray. hydrocortisone 1 % topical cream Apply topically. ketotifen (ZADITOR) 0.025 % ophthalmic solution 1 drop. 03/28/2021 levocetirizine (XYZAL) 5 mg tablet Take 1 tablet (5 mg total) by mouth. 03/28/2021 loperamide (IMODIUM) 2 mg capsule Take 1 capsule (2 mg total) by mouth 4 (four) times a day if needed for diarrhea. 360 capsule 1 06/28/2024 loratadine 10 mg capsule Take 1 capsule by mouth 1 (one) time each day. 02/15/2022 magnesium oxide (MAG-OX) 400 mg (241.3 elemental magnesium) tablet TAKE 1 TABLET BY MOUTH TWICE A DAY 180 tablet 1 08/23/2024 melatonin 5 mg tablet TAKE 1 TABLET BY MOUTH EVERYDAY AT BEDTIME 90 tablet 1 09/02/2024 montelukast (SINGULAIR) 10 mg tablet Take 1 tablet (10 mg total) by mouth at bedtime. 100 tablet 2 08/03/2024 omeprazole (PriLOSEC) [address] capsule Take 1 capsule (20 mg total) by mouth 1 (one) time each day. potassium chloride (KLOR-CON) 10 mEq CR tablet TAKE 2 TABLETS BY MOUTH TWICE A DAY 360 tablet 1 08/02/2024 Ventolin HFA 90 mcg/actuation inhaler INHALE 2 PUFFS INTO THE LUNGS 4 TIMES DAILY NEEDED FOR COUGH OR WHEEZING. 18 each 2 06/11/2024 documented as of this encounter Discharge Disposition Disposition Code Departure Means Destination Home or Self Care documented in this encounter Plan of Treatment Upcoming Encounters Date Type Department Care Team (Late st Contact Info) Description 10/27/2024 10:45 AM EDT Office Visit Orthoped[facility] - [place] [address] [place] [address] Raj Farrell PA [address] [place] [address] documented as of this encounter Procedures Procedure Name Priority Date/Time Associated Diagnosis Comments XR ESOPHAGRAM Routine 10/14/2024 8:14 AM EDT Passage of loose stools Norovirus Other fatigue Dysphagia, unspecified type documented in this encounter Visit Diagnoses Not on filedocumented in this encounter Administered Medications Inactive Administered Medications - up to 3 most recent administrations Medication Order MAR Action Action Date Dose Rate Site barium sulfate (E-Z-DISK) tablet 700 mg 700 mg, oral, Once in imaging, Starting on Zenaida 10/14/24 at 0815, For 1 dose, Swallow whole with 1-2 swallows of water just prior to fluoroscopic examination. Given 10/14/2024 8:16 AM EDT 700 mg barium sulfate (E-Z-HD) 98 % suspension 100 mL 100 mL, oral, Once in imaging, Starting on Zenaida 10/14/24 at 0815, For 1 dose Given 10/14/2024 8:16 AM EDT 100 mL barium sulfate (E-Z-PAQUE) 96 % (w/w) suspension 100 mL 100 mL, oral, Once in imaging, Starting on Zenaida 10/14/24 at 0815, For 1 dose Given 10/14/2024 8:16 AM EDT 100 mL sod bicarb-citric ac-simeth 2.21-1.53 gram/4 gram packet 1 packet 1 packet, oral, Once, On Zenaida 10/14/24 at 0845, For 1 dose, Dissolve the contents of a half of a packet on the back of the tongue, wash down with 15 mL of water or juice and repeat with remaining contents. Given 10/14/2024 8:16 AM EDT 1 packet documented in this encounter Care Teams Transportation Maintenance Operator Relationship Specialty Start Date End Date Roge Rodriguez MD [address] [place] [id number] PCP - General Internal Medicine 12/15/18 documented as of this encounter
--- OUTSIDE RECORDS SUMMARY | 2024-10-20 12:17 | XMS_ITS | Encounter Summary ---
Author Organization [facility] Address [address] [place] [address] Care Team Providers Care Technical Publications Manager Name Role Phone Roge Rodriguez MD Primary Care Provider [phone] Encounter Details Date Type Department Care Team (Late st Contact Info) Description 04/23/2023 Lab Requisition [facility] Lab [address] [place] [address] Raman Jordan MD [address] [place] [address] Diarrhea, unspecified; No diagnosis Social History Tobacco Use Types Packs/Day Years Used Date Smoking Tobacco: Former Cigarettes 0.3 41 1 - 2020 Smokeless Tobacco: Never Alcohol Use Standard Drinks/Week Comments Not Currently 0 (1 standard drink = 0.6 oz pur e alcohol) Comments No Sex and Gender Information Value Date Recorded Sex Assigned at Not on file Legal Sex Female 5:32 PM EDT Gender Identity Not on file Sexual Orientation Not on file documented as of this encounter Plan of Treatment Not on file documented as of this encounter Procedures * Due to [place] state law, this organization might not be sharing negative HIV tests. Procedure Name Priority Date/Time Associated Diagnosis Comments C DIFF TOXIN B PCR W/REFLEX TO GDH & TOXIN (AMBULATORY) - [facility] Routine 04/23/2023 9:51 AM EDT Diarrhea, unspecified No diagnosis C DIFFICILE GDH [facility] TOXIN (REFLEX[id number] Routine 04/23/2023 9:51 AM EDT Diarrhea, unspecified No diagnosis CBC AUTO DIFFERENTIAL Routine 04/23/2023 9:51 AM EDT Diarrhea, unspecified No diagnosis BASIC METABOLIC PANEL Routine 04/23/2023 9:51 AM EDT Diarrhea, unspecified No diagnosis documented in this encounter Results * Due to [place] state law, this organization might not be sharing negative HIV tests. * (ABNORMAL) C difficile GDH & Toxin (04/23/2023 9:51 AM EDT) C. difficile Interpretation C. difficile present, but toxin is not detected(A) No Toxigenic C. difficile detected [facility] MANUAL 04/23/2023 2:43 PM EDT [facility] Comment: Interpret results considering the clinical history and physical examination of the patient. C. difficile DNA Positive / C. difficile Toxin Negative: The combined results are indeterminant as there are several possible explanations. 1. The patient has non-toxigenic C. difficile. 2. The patient is an asymptomatic carrier of non-toxigenic C. difficile. 3. The patient has active toxigenic C. difficile, but toxin level is below the limit of detection of the assay. GDH Antigen Positive(A) Negative [facility] MANUAL 04/23/2023 2:43 PM EDT [facility] C difficile toxins A+B Negative Negative [facility] MANUAL 04/23/2023 2:43 PM EDT [facility] Stool Rectal route / Unknown 04/23/2023 9:51 AM EDT 04/23/2023 9:51 AM EDT us Raman Jordan MD LAB BODY FLUIDS AND STOOLS O RDERABLES Final Result [facility] [address] [place] [id number], [place] [phone] * (ABNORMAL) C diff Toxin B PCR w/Reflex to GDH & Toxin (04/23/2023 9:51 AM EDT) Pathologist [facility] C diff PCR Detected( A) Not Detected [facility] 04/23/2023 2:51 PM EDT [facility] Comment:Confirmatory testing with GDH Antigen and C. diff Toxin A&B to follow. Stool Rectal route / Unknown 04/23/2023 9:51 AM EDT 04/23/2023 9:51 AM EDT Narrative [facility] - 04/23/2023 2:51 PM EDT Methodology: Real-time polymerase chain reaction (PCR) to detect the toxin B gene of toxigenic Clostridioides difficile (C. difficile) in unformed (liquid or soft) stool specimens obtained from patients suspected of having C. difficile infections (CDI). Raman Jordan MD LAB BODY FLUIDS AND STOOLS O RDERABLES Final Result [facility] [address] [place] [address], * (ABNORMAL) CBC Auto Differential (04/23/2023 9:51 AM EDT) [facility] WBC 7.1 4.8 - 10.8 10*3/uL 04/23/2023 12:07 PM EDT [facility] RBC 3.66(L) 4.20 - 5.40 10*6/uL 04/23/2023 12:07 PM EDT [facility] Hemoglobin 10.3(L) 11.7 - 15.5 g/dL 04/23/2023 12:07 PM EDT [facility] Hematocrit 32.2(L) 35.7 - 45.8 % 04/23/2023 12:07 PM EDT [facility] MCV 88.0 81.0 - 99.0 fL 04/23/2023 12:07 PM EDT [facility] MCH 28.1 26.0 - 34.0 pg 04/23/2023 12:07 PM EDT [facility] MCHC 32.0 29.0 - 36.0 g/dL 04/23/2023 12:07 PM EDT [facility] RDW Standard Deviation 45.7 36.4 - 46.3 fL 04/23/2023 12:07 PM EDT [facility] RDW 14.2 11.0 - 15.0 % 04/23/2023 12:07 PM EDT [facility] Platelets 304 140 - 440 10*3/uL 04/23/2023 12:07 PM EDT [facility] MPV 11.0 7.6 - 11.6 fL 04/23/2023 12:07 PM EDT [facility] Segs % 49(L) 50 - 75 % 04/23/2023 12:07 PM EDT [facility] Immature Grans % 0.3 0.0 - 0.9 % 04/23/2023 12:07 PM EDT [facility] Segs # 3.5 1.8 - 7.7 /??L 04/23/2023 12:07 PM EDT [facility] Immature Grans # 0.02 0.00 - 0.03 10*3/uL 04/23/2023 12:07 PM EDT [facility] nRBC % 0.0 0 - 0 /100 WBCs 04/23/2023 12:07 PM EDT [facility] nRBC # 0.00 0.00 - 0.13 10*3/uL 04/23/2023 12:07 PM EDT [facility] Lymphocyte % 40 20 - 44 % 04/23/2023 12:07 PM EDT [facility] Lymphocyte # 2.81 1.00 - 4.75 10*3/uL 04/23/2023 12:07 PM EDT [facility] Monocyte % 6 0 - 14 % 04/23/2023 12:07 PM EDT [facility] Eosinophil % 5 0 - 5 % 04/23/2023 12:07 PM EDT [facility] Basophil % 0 0 - 2 % 04/23/2023 12:07 PM EDT [facility] Monocyte # 0.44 0.00 - 6.00 10*3/uL 04/23/2023 12:07 PM EDT [facility] Eosinophil # 0.36 0 - 0.8 10*3/uL 04/23/2023 12:07 PM EDT [facility] Basophil # 0.01 0.00 - 0.20 10*3/uL 04/23/2023 12:07 PM EDT [facility] Blood Structure of peripheral vein / Unknown 04/23/2023 9:51 AM EDT 04/23/2023 9:51 AM EDT us Raman Jordan MD LAB BLOOD ORDERABLES Final R esult [facility] [address] [place] [address], * (ABNORMAL) Basic Metabolic Panel (04/23/2023 9:51 AM EDT) NA 143 136 - 145 mmol/L 04/23/2023 11:57 AM EDT [facility] K 3.5 3.5 - 5.1 mmol/L 04/23/2023 11:57 AM EDT [facility] Cl 111(H) 98 - 109 mmol/L 04/23/2023 11:57 AM EDT [facility] CO2 23 23 - 32 mmol/L 04/23/2023 11:57 AM EDT [facility] BUN 10 8 - 23 mg/dL 04/23/2023 11:57 AM EDT [facility] Creatinine 0.75 0.50 - 1.12 mg/dL 04/23/2023 11:57 AM EDT [facility] Glucose 83 60 - 99 mg/dL 04/23/2023 11:57 AM EDT [facility] Calcium 10.4 8.4 - 10.4 mg/dL 04/23/2023 11:57 AM EDT [facility] Anion Gap 13 >=0 04/23/2023 11:57 AM EDT [facility] eGFR >90 >=60 mL/min/1. 73m2 04/23/2023 11:57 AM EDT [facility] Comment:The estimated glomer ular filtration rate (eGFR) is calculated using a new formula developed by the NKF-ASN task force to eliminate race-based correction factors. The new formula uses serum/plasma creatinine, age, and gender to determine eGFR. A value below 60mls/min might indicate kidney disease and will be flagged. For additional information, see Weiss et al, Am J Kidney Dis. 2021;79(2):268- 288, A Unifying Approach for GFR estimation: Recommendations of the NKF-ASN Task Force on Reassessing the Inclusion of Race in Diagnosing Kidney Disease . 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
--- OUTSIDE RECORDS SUMMARY | 2024-10-20 12:17 | XMS_ITS | Clinical Summary ---
Author Organization [facility] Address [address] [place] [address] Care Team Providers Care Forgesmith Name Role Phone Roge Rodriguez MD Primary Care Provider [phone] Allergies Active Allergy Reactions Criticality Noted Date [...] by mouth once a day. Active pancrelipase, iczzes-ogoiqzzu-qp ylase, (Creon) 12,000-38,000 -60,000 unit capsule Take 1 capsule by mouth 3 times a day with meals. Lipase Protease- Amylase [id number] UNIT 1 capsule PO before meals Active [...] on TPN for several months at her half-way. On further discussion with her she reports [...] (04/15/2023 2:44 PM EDT): Presenting from the [facility] with concern for confusion to be [...] 11:20 PM EDT): Patient presenting from the [facility] where she is currently residing with [...] 04/12/2023 3:25 PM EDT Plan of Treatment Health Maintenance Due Date Last Done Comments Cervical Cancer Screening 1961 Cologuard 1961 Colon Cancer Screening 1961 Colonoscopy 1961 FOBT / Fit Test 1961 HIV Screening 1961 HPV and Pap Smear 1961 Pap Smear 1961 Sigmoidoscopy 1961 Pneumococcal Vaccine: 50+ Years (1 of 2 - PCV) 1980 DTaP,Tdap,and Td Vaccines (1 - Tdap) 12/01/1983 Mammogram 2001 RSV Vaccine (60+ years old a nd patients) (1 - Risk 60-74 years 1-dose series) 2021 COVID-19 Vaccine (4 - 2023-2 5 season) 2024 08/25/2021, 12/07/2020, 11/16/2020 Alcohol/Substance Use Screening 07/14/2024 Depression Screening and Follow-Up 07/14/2024 Social Drivers of Health Annual Screening 07/14/2024 Influenza Vaccine (Season Ended) 2025 Zoster Vaccines Completed 11/02/2021, 02/01/2021 Hepatitis C Screening Completed 03/19/2023 Hepatitis B Vaccines Aged Out No long er eligible based on patient's age to complete this topic Procedures * Due to [place] [employer] law, this organization might not be sharing negative HIV tests. Procedure Name Priority Date/Time Associated Diagnosis Comments HEPATITIS C ANTIBODY W/REFLEX TO HCV RNA, QUANTITATIVE PCR STAT 03/19/2023 3:26 PM EDT from Last 3 Months or Most Recently Relevant to Health Maintenance Results * Due to [place] [employer] law, this organization might not be sharing negative HIV tests. * Hepatitis C Antibody w/Reflex to HCV RNA, Quantitative PCR (03/19/2023 3:26 PM EDT) Hepatitis C Antibody NON-REACT NELSON NON-REACT NELSON 03/20/2023 12:27 AM EDT [facility] Comment: HCV antibody was non-reactive. There is no laboratory evidence of HCV infection. In most cases, no further action is required. However, if recent HCV exposure is suspected, a test for HCV RNA (test code 50840) is suggested. For additional information please refer to http://education.[employer]/faq/CVV82k7 (This link is being provided for informational/ educational purposes only.) Blood Structure of peripheral vein / Unknown Venipuncture / Unknown 03/19/2023 3:26 PM EDT 03/19/2023 3:26 PM EDT Narrative [facility] - 03/20/2023 12:27 AM EDT [facility] Received Date: Spencer Galeas MD LAB BLOOD ORDERABLES Final Res ult [facility] [address] [facility] [address] [facility], [place] [address], [address] [facility] [address] [facility] [address], [place] [address], from Last 3 Months or Most Recently Relevant to Health Maintenance Additional Health Concerns Infection Onset Date Last Indicated 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
--- OUTSIDE RECORDS SUMMARY | 2024-10-20 12:17 | XMS_ITS | Encounter Summary ---
Author Organization [facility] Address [address] [place] [address] Care Team Providers Care Recreational Therapy Technician Name Role Phone Roge Rodriguez MD Primary Care Provider [phone] Reason for Visit * Reason Onset Date Comments DME 09/27/2024 Encounter Details Date Type Department Care Team ([facility] st Contact Info) Description 09/27/2024 Telephone Internal Medicine - [facility] [address] [place] [phone] Roge Rodriguez MD [address] [place] [address] [place] [address] DME Social History Tobacco Use Types Packs/Day Years [...] as of this encounter Progress Notes * Yakelin Baeza MA - 10/15/2024 1:57 PM EDT Faxed to [facility] [phone] * Yakelin Baeza MA - 10/15/2024 8:33 AM EDTAddended by: YAKELIN BAEZA on: 10/15/2024 08:33 AM Modules accepted: Orders * Yakelin Baeza MA - 10/15/2024 8:32 AM EDT New order pended stating pull ups in notes. * Radha Cotto - 10/14/2024 4:11 PM EDT Patient called and stated that when she went to [facility] and they gave her diapers not pull ups. Please send over again. Cb# [phone] * Yakelin aBeza MA - 09/29/2024 12:32 PM EDT Faxed to [facility] [phone] * Yakelin Baeza MA - 09/28/2024 1:29 PM EDT Pended. * Radha Cotto - 09/27/2024 3:21 PM EDT Name of Product: pull ups Specific information about product medium # Needed 3 boxes Reason patient is asking for this supply? incontinent Have you received this supply before? If yes , when?: yes. Has Patient been seen in the last 6 months yes If NO, Please book appt before DME can be ordered Have you discussed the need for this supply with a provider at a recent visit? no If yes, with who and when? No Child Life Appt necessary When completed, SHIPPING ADDRESS: [address] [place] [address] [place] [phone] Send to [facility] Have you told the patient it will take 7-10 days for completion of this request? yes documented in this encounter Plan of Treatment Upcoming Encounters Date Type Department Care Team (Late st Contact Info) Description 10/27/2024 10:45 AM EDT Office Visit Orthopedics - [place] [address] [place] [address] Raj Farrell PA [address] [place] [address] documented as of this encounter Visit Diagnoses Diagnosis Loose stools- Primary Abnormal feces Urinary incontinence, unspecified type documented in this encounter Orders General Supply Count Last Ordered Date First Or dered Date BRIEF/DIAPER, ADULT MEDIUM 1 10/15/2024 documented in this encounter Care Teams Recreational Therapy Technician Relationship Specialty Start Date End Date Roge Rodriguez MD [address] [place] [address] PCP - General Internal Medicine 12/15/18 documented as of this encounter
--- OUTSIDE RECORDS SUMMARY | 2024-10-20 12:17 | XMS_ITS | Clinical Summary ---
Author Organization [facility] [address] [facility] Address [address] [place] [address] Phone Care Team Providers Care Jar Filler Name Role Phone Roge Rodriguez MD Primary Care Provider [phone] Allergies No known active allergies Medications fluticasone propionate (FLONASE) 50 mcg/actuation nasal spray 1 spray. Active fluticasone HFA (FLOVENT HFA) 220 mcg/actuation inhaler Inhale 1 puff by mouth. 02/15/2022 Active omeprazole (PriLOSEC) [address] capsule Take 1 capsule (20 mg total) by mouth 1 (one) time each day. Active loratadine 10 mg capsule Take 1 capsule by mouth 1 (one) time each day. 02/15/2022 Active calcium carbonate 1,500 mg (600 mg elemental calcium) tablet Take 1 tablet (1,500 mg total) by mouth. 07/21/2023 Active cholecalciferol (VITAMIN D-3) 50 mcg (2,000 unit) tablet Take 1 tablet (2,000 Units total) by mouth. Active ketotifen (ZADITOR) 0.025 % ophthalmic solution 1 drop. 03/28/2021 Active levocetirizine (XYZAL) 5 mg tablet Take 1 tablet (5 mg total) by mouth. 03/28/2021 Active hydrocortisone 1 % topical cream Apply topically. Active azelastine (ASTELIN) 137 mcg (0.1 %) nasal spray PUT 1 TO 2 SPRAYS INTO EACH NOSTRIL TWICE A DAY DIRECTED 09/27/2022 Active diaper,brief,ad ult, disposable (BRIEFS MISC) large 11/05/2022 Activ e Ventolin HFA 90 mcg/actuation inhaler INHALE 2 PUFFS INTO THE LUNGS 4 TIMES DAILY NEEDED FOR COUGH OR WHEEZING. 18 each 2 06/11/2024 Active loperamide (IMODIUM) 2 mg capsule Take 1 capsule (2 mg total) by mouth 4 (four) times a day if needed for diarrhea. 360 capsule 1 06/28/2024 Active docusate sodium (COLACE) 100 mg capsule TAKE 1 CAPSULE BY MOUTH TWICE A DAY 180 capsule 1 07/03/2024 Active potassium chloride (KLOR-CON) 10 mEq CR tablet TAKE 2 TABLETS BY MOUTH TWICE A DAY 360 tablet 1 08/02/2024 Active montelukast (SINGULAIR) 10 mg tablet Take 1 tablet (10 mg total) by mouth at bedtime. 100 tablet 2 08/03/2024 Active diphenoxylate-a tropine (LOMOTIL) 2.5-0.025 mg per tablet Take 1 tablet by mouth 4 (four) times a day if needed for diarrhea. Max Daily Amount: 4 tablets 60 tablet 5 08/12/2024 Active dicyclomine (BENTYL) 10 mg capsule Take 1 capsule (10 mg total) by mouth 4 (four) times a day if needed (abdominal cramping). 60 capsule 11 08/12/2024 08/12/19 26 Active magnesium oxide (MAG-OX) 400 mg (241.3 elemental magnesium) tablet TAKE 1 TABLET BY MOUTH TWICE A DAY 180 tablet 1 08/23/2024 Active Eliquis 5 mg tablet TAKE 1 TABLET BY MOUTH TWICE A DAY 60 tablet 5 08/23/2024 Active melatonin 5 mg tablet TAKE 1 TABLET BY MOUTH EVERYDAY AT BEDTIME 90 tablet 1 09/02/2024 Active ascorbic acid (VITAMIN C) 250 mg tablet Take 1 tablet (250 mg total) by mouth 1 (one) time each day. 08/23/2024 Active Hospital, Clinic, or Other Facility Administered Medication Ordered Dose Route Frequency Start Date End Date Status lidocaine (XYLOCAINE) 1 % injection 4 mLIndications:Primary osteoarthritis of left knee 4 mL inj Once PRN Procedure 10/13/2024 10/13/2024 Ended methylPREDNISolone acetate (DEPO-Medrol) injection 80 mgIndications:Primary osteoarthritis of left knee 80 mg IAtc Once PRN Procedure 10/13/2024 10/13/2024 Ended Active Problems Problem Noted Date Diagnosed Date Heartburn 09/02/2023 GERD (gastroesophageal reflux disease) Swallowing difficulty 09/02/2023 Choking 09/02/2023 Tobacco use 09/02/2023 H/O resection of small bowel 05/22/2023 Herpes 07/05/2021 Serous otitis media 03/21/2021 Allergic conjunctivitis of both eyes 05/16/2020 Hyperlipidemia 10/02/2018 Perennial allergic rhinitis 09/02/2018 Obesity 02/25/2017 Asthma 02/25/2017 Encounters Date Type Department Care Team Description 10/14/2024 7:37 AM EDT - 10/14/2024 11:59 PM EDT Hospital Encounter [facility] Xray [address] [place] [address] Discharge Disposition: Home or Self Care 10/14/[address] [facility] [address] [address] Roge Rodriguez MD PT1 10/14/2024 Telephone Internal Medicine [address] [phone] Roge Rodriguez MD PT1 10/14/2024 [facility] [address] [phone] Roge Rodriguez MD PT1 10/13/2024 3:00 PM EDT Office Visit Orthopedics [address] [phone] Raj Farrell PA Primary osteoarthritis of left knee (Primary Dx); Right knee pain, unspecified chronicity; Chronic left shoulder pain 09/27/2024 Telephone Internal Medicine [address] [address] Roge Rodriguez MD DME 09/02/2024 Telephone Internal Medicine [address] [phone] Marlen Baeza [place] faxed order (L&C) 08/12/2024 11:00 AM EST Office Visit Gastroenterology - [place] [facility] 175 [facility] [address] [place] [address] Chau Logan PA Passage of loose stools (Primary Dx); Norovirus; Other fatigue; Dysphagia, unspecified type 08/10/2024 8:30 AM EST Office Visit Internal Medicine - [place] [address] [facility] [address] [place] [address] Roge Rodriguez MD Loose stools (Primary Dx); Dysphagia, unspecified type; Subacute cough; H/O resection of small bowel 08/10/[address] [facility] [address] [facility] [address] [place] [address] Roge Rodriguez MD 07/29/[address] [facility] [address] [phone] Roge Rodriguez MD Joseph: Referral from Last 3 Months Immunizations Name Administration Dates Next Due Pfizer SARS-CoV-2 COVID-19, mRNA, LNP-S, preservative free 12/07/2020,11/16/2020 Pneumococcal conjugate 13 va lent (Prevnar 13, PCV13) 2mo and older 06/17/2016 Zoster recombinant (Shingrix) 19yo and older Surgical History Surgery Date Site/Laterality Comments TUBAL LIGATION PROCEDURE: HISTORICAL TUBAL LIGATION Medical History Medical History Date Comments Asthma 02/25/2017 DX:Asthma Obesity 02/25/2017 DX:Obesity Tobacco use 08/11/2017 DX:Tobacco use Allergic rhinitis 09/02/2018 DX:Allergic rh initis Hyperlipidemia 10/02/2018 DX:Hyperlipidemi a Heartburn DX:Heartburn GERD (gastroesophageal reflux disease) DX:GERD (gastroesophageal reflux disease) Swallowing difficulty DX:Swallow ing difficulty Choking DX:Choking Change in bowel habits DX:Change in bowel habits Status post abdominal surger y, follow-up exam DX:Status post abdominal sandeep brisa, follow-up exam Family History Medical History Relation Name Comments Cervical cancer Aunt Diabetes Father MS, Stroke Diabetes Mother Alzheimers Dise ase Breast cancer Neg Hx Colon cancer Neg Hx Relation Name Status Comments Aunt Father Mother Alive Social History Tobacco Use Types Packs/Day Years Used Date Smoking Tobacco: Every Day Smokeless Tobacco: Never Tobacco Cessation:Ready to Q uit: Not Asked; Counseling Given: Not Answered Alcohol Use Standard Drinks/Week Comments No 0 (1 standard drink = 0.6 oz pur e alcohol) Comments No Sex and Gender Information Value Date Recorded Sex Assigned at Female 06/08/2024 2:12 PM EST Legal Sex Female 1:07 AM EST Gender Identity Female 06/08/2024 2:12 PM EST Sexual Orientation Choose not to disclose 2023 2:12 PM EST Obstetrics History Last Filed Vital Signs Vital Sign Reading Time Taken Comments Blood Pressure 116/74 08/12/2024 11:00 AM EST Pulse 76 08/12/2024 11:00 AM EST Temperature 36.9 ??C (98.5 ??F) 08/10/2024 8:46 AM ES T Respiratory Rate 14 10/13/2024 3:07 PM EDT Oxygen Saturation 96% 08/10/2024 8:46 AM EST Inhaled Oxygen Concentration - - Weight 69.9 kg (154 lb) 10/13/2024 3:07 PM EDT Height 157.5 cm (5' 2 ) 10/13/2024 3:07 PM EDT Body Mass Index 28.17 10/13/2024 3:07 PM EDT Plan of Treatment Upcoming Encounters Date Type Department Care Team (Late st Contact Info) Description 10/27/2024 10:45 AM EDT Office Visit Orthopedics - [place] [address] [place] [address] Raj Farrell PA [address] [place] [address] Health Maintenance Due Date Last Done Comments DTaP,Tdap,and Td Vaccines (1 - Tdap) 1980 Pneumococcal Vaccine: 50+ Years (2 of 2 - PPSV23) 08/12/2016 06/17/2016 Pneumococcal Vaccine: Pediatrics (0 to 5 Years) and At-Risk Patients (6 to 64 Years) (2 of 2 - PPSV23) 08/12/2016 06/17/2016 Cervical Cancer Screening: Pap Smear 07/20/2021 07/20/2018 RSV Immunization Adult Patients (1 - Risk 60-74 years 1-dose series) 2021 Cholesterol Screening (Lipid Panel) 06/22/2022 Colorectal Cancer Screening: Colonoscopy 06/22/2022 Depression Screening 06/22/2022 HIV Screening 06/22/2022 Social Influencers of Health Screening 06/22/2022 COVID-19 Vaccine ( season) 2024 08/25/2021, 12/07/2020, 11/16/2020 Influenza Vaccine (Season Ended) 2025 Breast Cancer Screening 10/01/2025 10/02/19 24, 04/25/2022, 02/02/2021, Additional history exists Zoster Vaccines Completed 11/02/2021, 02/01/2021 Hepatitis C Screening Completed 03/19/2023 HIB Vaccines Aged Out No longer eligi ble based on patient's age to complete this topic HPV Vaccines Aged Out No longer eligi ble based on patient's age to complete this topic Hepatitis A Vaccines Aged Out No long er eligible based on patient's age to complete this topic Hepatitis B Vaccines Aged Out No long er eligible based on patient's age to complete this topic IPV Vaccines Aged Out No longer eligi ble based on patient's age to complete this topic MMR Vaccines Aged Out No longer eligi ble based on patient's age to complete this topic Meningococcal ACWY Vaccine Aged Out N o longer eligible based on patient's age to complete this topic Meningococcal B Vaccine Aged Out No l onger eligible based on patient's age to complete this topic RSV Immunization Patients Under 20 months Aged Out No longer eligible based on patient's age to complete this topic Varicella Vaccines Aged Out No longer eligible based on patient's age to complete this topic Procedures Procedure Name Priority Date/Time Associated Diagnosis Comments XR ESOPHAGRAM Routine 10/14/2024 8:14 AM EDT Passage of loose stools Norovirus Other fatigue Dysphagia, unspecified type LARGE JOINT ARTHROCENTESIS Routine 10/13/2024 3:00 PM EDT Primary osteoarthritis of left knee CBC WITH AUTO DIFFERENTIAL Routine 08/10/2024 9:10 AM EST Dysphagia, unspecified type Loose stools Subacute cough MAGNESIUM Routine 08/10/2024 9:10 AM EST Dysphagia, unspecified type Loose stools Subacute cough H/O resection of small bowel THYROID STIMULATING HORMONE Routine 08/10/2024 9:10 AM EST Dysphagia, unspecified type Loose stools Subacute cough COMPREHENSIVE METABOLIC PANEL Routine 08/10/2024 9:10 AM EST Dysphagia, unspecified type Loose stools Subacute cough CBC AND DIFFERENTIAL Routine 08/10/2024 9:10 AM EST Dysphagia, unspecified type Loose stools Subacute cough MAXINE SCREENING DIGITAL Routine 10/02/2023 10:58 AM EDT Encounter for screening mammogram for malignant neoplasm of breast PAP SMEAR Routine 07/20/2018 from Last 3 Months or Most Recently Relevant to Health Maintenance Results * XR Esophagram (10/14/2024 8:14 AM EDT) Anatomical Region Laterality Modality Head and Neck Radiographic Lora ging 10/14/2024 8:39 AM EDT Impressions 10/14/2024 4:49 PM EDT Normal double contrast esophagram exam. -------- FINAL REPORT -------- Dictated By: Violet Brenner Dictated Date: 10/14/2024 08:39 ET Assigned Physician: Brittaney Patterson Reviewed and Electronically Signed By: Brittaney Patterson Signed Date: 10/14/2024 16:49 ET Workstation ID: [id number] Transcribed By: Self Edit Transcribed Date: 10/14/2024 08:42 ET Resident/PA/RIGHT OF WAY AGENT: Violet Brenner Narrative 10/14/2024 4:49 PM EDT FINDINGS: Double contrast esophagram performed. Limited exam due to patient intolerance to by mouth contrast. COMPARISON: No prior esophagram imaging HISTORY: Patient is a 63-year-old female with history of dysphagia. Machine Scallop Cutter radiographs: 1 view chest x-ray demonstrates cardiac and mediastinal contours within normal limits. Lungs are clear bilaterally. Costophrenic angles are sharp. 1 view lateral soft tissue neck demonstrates no prevertebral soft tissue masses. Airway is widely patent. There are bony degenerative changes of the cervical spine. Effervescent crystals were administered orally. Thick and thin barium were administered orally under fluoroscopic control. Pharyngoesophagram: Rapid sequence imaging of the hypopharynx during swallowing demonstrates prompt initiation of swallowing. There is normal soft palate elevation and normal epiglottic motion. There is no laryngeal penetration or milena aspiration. There is no residual in the vallecula nor in the piriform sinuses. Thoracic esophagus: Normal distensibility, motility and mucosal pattern without evidence of ulceration, stricture or mass formation. Hiatal hernia: None Reflux: Unable to elicit 13mm Barium pill: Swallowed without difficulty. Prompt passage of pill from the esophagus into the stomach. DAP: 6.68 Gycm^2 Procedure Note Brittaney Patterson MD - 10/14/2024 FINDINGS: Double contrast esophagram performed. Limited exam due topatient intolerance to by mouth contrast. COMPARISON: No prior esophagram imaging HISTORY: Patient is a 63-year-old female with history of dysphagia. Machine Scallop Cutter radiographs: 1 view chest x-ray demonstrates cardiac and mediastinalcontours within normal limits. Lungs are clear bilaterally. Costophrenicangles are sharp. 1 view lateral soft tissue neck demonstrates noprevertebral soft tissue masses. Airway is widely patent. There are bonydegenerative changes of the cervical spine. Effervescent crystals were administered orally. Thick and thin barium wereadministered orally under fluoroscopic control. Pharyngoesophagram: Rapid sequence imaging of the hypopharynx duringswallowing demonstrates prompt initiation of swallowing. There is normalsoft palate elevation and normal epiglottic motion. There is no laryngealpenetration or milena aspiration. There is no residual in the vallecula norin the piriform sinuses. Thoracic esophagus: Normal distensibility, motility and mucosal patternwithout evidence of ulceration, stricture or mass formation. Hiatal hernia: None Reflux: Unable to elicit 13mm Barium pill: Swallowed without difficulty. Prompt passage of pillfrom the esophagus into the stomach. DAP: 6.68 Gycm^2 IMPRESSION: Normal double contrast esophagram exam. -------- FINAL REPORT -------- Dictated By: Violet Brenner Dictated Date: 10/14/2024 08:39 ET Assigned Physician: Brittaney Patterson Reviewed and Electronically Signed By: Brittaney Patterson Signed Date: 10/14/2024 16:49 ET Workstation ID: [id number] Transcribed By: Self Edit Transcribed Date: 10/14/2024 08:42 ET Resident/PA/RIGHT OF WAY AGENT: Violet Brenner Chau GUTIERREZ IMG FLUOROSCOPY PROCEDURES Renetta l Result * (ABNORMAL) CBC auto differential (08/10/2024 9:10 AM EST) [facility] WBC 8.6 4.8 - 10.8 K/mcL LAB HEMETOLOGY METHOD 08/10/2024 10:13 AM [facility] RBC 4.20 3.80 - 4.80 M/mcL LAB HEMETOLOGY METHOD 08/10/2024 10:13 AM [facility] Hemoglobin 11.6 11.5 - 16.0 g/dL LAB HEMETOLOGY METHOD 08/10/2024 10:13 AM [facility] Hematocrit 37.3 35.0 - 47.0 % LAB HEMETOLOGY METHOD 08/10/2024 10:13 AM [facility] MCV 89.7 79.0 - 98.0 FL LAB HEMETOLOGY METHOD 08/10/2024 10:13 AM [facility] MCH 27.9 27.0 - 32.0 pcg LAB HEMETOLOGY METHOD 08/10/2024 10:13 AM [facility] MCHC 31.1(L) 32.0 - 37.0 g/dL LAB HEMETOLOGY METHOD 08/10/2024 10:13 AM [facility] RDW 15.1(H) 11.0 - 15.0 % LAB HEMETOLOGY METHOD 08/10/2024 10:13 AM [facility] Platelets 308 130 - 400 K/mcL LAB HEMETOLOGY METHOD 08/10/2024 10:13 AM [facility] MPV 11.8(H) 7.0 - 11.0 FL LAB HEMETOLOGY METHOD 08/10/2024 10:13 AM [facility] NRBC 0.0 <1.0 % LAB HEMETOLOGY METHOD 08/10/2024 10:13 AM [facility] NRBC Absolute 0.00 <0.10 K/mcL LAB HEMETOLOGY METHOD 08/10/2024 10:13 AM [facility] Neutrophils Relative 56.8 % LAB HEMETOLOGY METHOD 08/10/2024 10:13 AM [facility] Lymphocytes Relative 34.8 % LAB HEMETOLOGY METHOD 08/10/2024 10:13 AM [facility] Monocytes Relative 5.9 % LAB HEMETOLOGY METHOD 08/10/2024 10:13 AM [facility] Eosinophils Relative 2.2 % LAB HEMETOLOGY METHOD 08/10/2024 10:13 AM [facility] Basophils Relative 0.1 % LAB HEMETOLOGY METHOD 08/10/2024 10:13 AM [facility] Immature Granulocytes Relative 0.2 % LAB HEMETOLOGY METHOD 08/10/2024 10:13 AM [facility] Neutrophils Absolute 4.87 1.50 - 7.00 K/mcL LAB HEMETOLOGY METHOD 08/10/2024 10:13 AM [facility] Lymphocytes Absolute 2.99 1.00 - 5.00 K/mcL LAB HEMETOLOGY METHOD 08/10/2024 10:13 AM [facility] Monocytes Absolute 0.51 0.20 - 1.00 K/mcL LAB HEMETOLOGY METHOD 08/10/2024 10:13 AM [facility] Eosinophils Absolute 0.19 0.00 - 0.50 K/mcL LAB HEMETOLOGY METHOD 08/10/2024 10:13 AM EST [facility] Basophils Absolute 0.01 0.00 - 0.20 K/[facility] LAB HEMETOLOGY METHOD 08/10/2024 10:13 AM EST [facility] Immature Granulocytes Absolute 0.02 0.00 - 0.03 K/[facility] LAB HEMETOLOGY METHOD 08/10/2024 10:13 AM EST [facility] Blood Venous blood specimen / Unknown Venipuncture / Unknown 08/10/2024 9:10 AM EST 08/10/2024 9:10 AM EST us Roge Rodriguez MD LAB BLOOD ORDERABLES Final Resul t Performing Organization Address City/[facility]/ZIP Co de Phone Number [facility] [address] [place] [address], [place] [phone] * Thyroid stimulating hormone (08/10/2024 9:10 AM EST) TSH 1.61 0.40 - 4.00 mcIU/mL LAB CHEMISTRY METHOD 08/10/2024 10:42 AM EST [facility] Blood Venous blood specimen / Unknown Venipuncture / Unknown 08/10/2024 9:10 AM EST 08/10/2024 9:10 AM EST us Roge Rodriguez MD LAB BLOOD ORDERABLES Final Resul t [facility] [address] [place] [address], [place] [phone] * (ABNORMAL) Magnesium (08/10/2024 9:10 AM EST) Magnesium 1.5(L) 1.9 - 2.6 mg/dL LAB CHEMISTRY METHOD 08/10/2024 10:34 AM EST [facility] Blood Venous blood specimen / Unknown Venipuncture / Unknown 08/10/2024 9:10 AM EST 08/10/2024 9:10 AM EST us Roge Rodriguez MD LAB BLOOD ORDERABLES Final Resul t [facility] [address] [place] [address], [place] [phone] * (ABNORMAL) Comprehensive metabolic panel (08/10/2024 9:10 AM EST) Sodium 139 133 - 145 mmol/L LAB CHEMISTRY METHOD 08/10/2024 10:41 AM [facility] Potassium 4.4 3.5 - 5.5 mmol/L LAB CHEMISTRY METHOD 08/10/2024 10:41 AM [facility] Chloride 109 96 - 110 mmol/L LAB CHEMISTRY METHOD 08/10/2024 10:41 AM [facility] CO2 26 21 - 32 mmol/L LAB CHEMISTRY METHOD 08/10/2024 10:41 AM [facility] Anion Gap 4 3 - 11 LAB CHEMISTRY METHOD 08/10/2024 10:41 AM [facility] Glucose 79 70 - 100 mg/dL LAB CHEMISTRY METHOD 08/10/2024 10:41 AM [facility] BUN 13 5 - 25 mg/dL LAB CHEMISTRY METHOD 08/10/2024 10:41 AM [facility] Creatinine 0.90 0.50 - 1.10 mg/dL LAB CHEMISTRY METHOD 08/10/2024 10:41 AM [facility] eGFR 72 >=60 mL/min/1. 73m2 LAB CHEMISTRY METHOD 08/10/2024 10:41 AM [facility] Comment:Calculation based on the??Chronic Kidney Disease Epidemiology Collaboration (CKD-EPI) equation refit??without adjustment for race. BUN/Creatinine Ratio 14.4 LAB CHEMISTRY METHOD 08/10/2024 10:41 AM [facility] Calcium 9.7 8.5 - 10.5 mg/dL LAB CHEMISTRY METHOD 08/10/2024 10:41 AM [facility] AST (SGOT) 13 10 - 42 unit/L LAB CHEMISTRY METHOD 08/10/2024 10:41 AM [facility] ALT (SGPT) 19 10 - 60 unit/L LAB CHEMISTRY METHOD 08/10/2024 10:41 AM [facility] Alkaline Phosphatase 133(H) 42 - 121 unit/L LAB CHEMISTRY METHOD 08/10/2024 10:41 AM [facility] Total Protein 7.5 6.0 - 8.0 g/dL LAB CHEMISTRY METHOD 08/10/2024 10:41 AM [facility] Albumin 3.8 3.2 - 5.0 g/dL LAB CHEMISTRY METHOD 08/10/2024 10:41 AM [facility] Total Bilirubin 0.3 0.0 - 1.4 mg/dL LAB CHEMISTRY METHOD 08/10/2024 10:41 AM [facility] Blood Venous blood specimen / Unknown Venipuncture / Unknown 08/10/2024 9:10 AM EST 08/10/2024 9:10 AM EST us Roge Rodriguez MD LAB BLOOD ORDERABLES Final Resul t [facility] [address] [place] [address], * MAXINE SCREENING DIGITAL (10/02/2023 10:58 AM EDT) Anatomical Region Laterality Modality Mammography 10/02/2023 8:37 AM EDT Narrative 10/02/2023 10:58 AM EDT [facility] Diagnostic Imaging Department [address] [place] [address] Patient: ??ALBA VYAS ?/Age/Sex: 1960 - 62 - F Unit#: ??[id number] ? Location/Status: ??SPDIMAM/REG CLI ? Mnemonic/Ordering Site: ??DIGSC/SPMAM Ordering Physician: ??ROGE RODRIGUEZ MD [facility] Screening Digital - 10/02/23 - 0857 Report Status:Signed EXAM: [facility] Screening Digital EXAM DATE AND TIME: 10/02/2023 8:58 AM HISTORY: ??Screening. Previous bilateral cyst aspirations. Patient states 45 pound weight loss since last mammogram. COMPARISON: ??04/25/22, 02/02/21, 10/17/18 TECHNIQUE: Bilateral digital breast tomosynthesis was performed in the CC and MLO projections. Computer aided detection with [employer] 3D 3.1 was employed. TISSUE DENSITY: a. The breasts are almost entirely fatty. FINDINGS: No suspicious masses, grouped microcalcifications, or areas of architectural distortion are seen. Circumscribed nodules in both breasts are long-term stable and considered benign. Vascular calcification is noted. The skin is unremarkable. IMPRESSION: Stable mammographic appearance of the breasts. ??No evidence of malignancy is seen. A negative mammogram in the presence of a clinically suspicious palpable abnormality does not preclude the possibility of malignancy or alter the indications for biopsy. BI-RADS: ??Category 2: Benign RECOMMENDATION(S): 1: Routine screening mammogram BILATERAL in 1 year. Dictating Physician: ??LATOYA MOLINA MD Electronically Signed by: ??LATOYA MOLINA MD Dic Date/Time: ??10/02/23 1057 Sign date/Time: ??10/02/23 1058 Procedure Note Latoya Molina MD - 03/01/2024 [facility] Diagnostic Imaging Department [address] [place] [id number] Patient: ALBA VYAS /Age/Sex: 1960 - 62 - F Unit#: [id number] Location/Status: SPDIMAM/REG CLI Mnemonic/Ordering Site: [facility] Ordering Physician: ROGE RODRIGUEZ MD [facility] Screening Digital - 10/02/23 - 0857 Report Status:Signed EXAM: [facility] Screening Digital EXAM DATE AND TIME: 10/02/2023 8:58 AM HISTORY: Screening. Previous bilateral cyst aspirations. Patient [id number] pound weight loss since last mammogram. COMPARISON: 04/25/22, 02/02/21, 10/17/18 TECHNIQUE: Bilateral digital breast tomosynthesis was performed in the CCand MLO projections. Computer aided detection with [employer] 3D 3.1was employed. TISSUE DENSITY: a. The breasts are almost entirely fatty. FINDINGS: No suspicious masses, grouped microcalcifications, or areas ofarchitectural distortion are seen. Circumscribed nodules in both breasts are long-termstable and considered benign. Vascular calcification is noted. The skin is unremarkable. IMPRESSION: Stable mammographic appearance of the breasts. No evidence of malignancyis seen. A negative mammogram in the presence of a clinically suspicious palpable abnormality does not preclude the possibility of malignancy or alter the indications for biopsy. BI-RADS: Category 2: Benign RECOMMENDATION(S): 1: Routine screening mammogram BILATERAL in 1 year. Dictating Physician: LATOYA MOLINA MD Electronically Signed by: LATOYA MOLINA MD Dic Date/Time: 10/02/23 1057 Sign date/Time: 10/02/23 1058 us Roge Rodriguez MD IMG BI PROCEDURES Final Result * Pap smear (07/20/2018) 07/20/2018 Narrative HISTORICAL TESTING LAB RESULTING AGENCY - 07/23/2018 11:28 AM EST [id number] THINPREP PAP, IMAGED: NEGATIVE FOR SQUAMOUS INTRAEPITHELIAL LESION AND MALIGNANCY . GABRIEL LAWRENCE(ASCP) (CASE ELECTRONICALLY SIGNED 07 22 2018) RESULT OF APTIMA HIGH RISK HPV ASSAY: HIGH RISK HPV: ??NEGATIVE (SEROTYPES 16,18,31,33,35,39,45,51,52,56,58,59,66,68) COMPLETED ON 2018-07-22 ADEQUACY: SATISFACTORY ENDOCERVICAL/TRANSFORMATION ZONE COMPONENT PRESENT. SOURCE: THINPREP PAP HPV ANY DX: ??REFLEX 16 AND 18, CERVICAL, IMAGED CLINICAL INFORMATION: HPV ANY DIAGNOSIS. PAP HX NEG [Z12.4, Z01.419] us Lee Ann Jaquez DO LAB CYTOLOGY ORDERABLES Final Result HISTORICAL TESTING LAB RESULTING AGENCY from Last 3 Months or Most Recently Relevant to Health Maintenance Insurance [place] [address] Care Teams Jar Filler Relationship Specialty Start Date End Date Roge Rodriguez MD [address] [address] PCP - General Internal Medicine 12/15/18
--- OUTSIDE RECORDS SUMMARY | 2024-10-20 12:17 | XMS_ITS | Encounter Summary ---
Author Organization [facility] Address [address] [place] [address] Care Team Providers Care Profile Saw Operator Name Role Phone Roge Rodriguez MD Primary Care Provider [phone] Reason for Visit * Reason Onset Date Comments PT1 10/14/2024 Encounter Details Date Type Department Care Team (Late st Contact Info) Description 10/14/2024 Telephone Internal Medicine - [place] [address] [place] [id number] Roge Rodriguez MD [address] [place] [address] PT1 Social History Tobacco Use Types Packs/Day [...] Notes * Marlen Baeza MA - 10/15/2024 8:41 AM EDT Submitted * Radha Cotto - 10/14/2024 4:26 PM EDT [employer] new provider or submitter number is [id number] Verify and document patients [place] Health insurance ID # (NOT [facility] ID): [id number] Payor: COMMERCIAL INSURANCE / Plan: COMMERCIAL INSURANCE / Product Type: OTHER Patient mailing address: [address] [facility] [address] Telephone Information: Work Phone Not on file. Mobile Not on file. Pt. demographics verified? yes If not accurate, update registration. Is this a NEW request or a RENEWAL? new Name of treating facility: [facility] Name (first & last) of treating provider? required : sanjuanita durham What is the medical reason why the patient is seeing the above provider? Glen summers Address/Zip code for treating provider: : [address] [place] [address] Phone # for treating provider: [phone] Is the provider in the [facility] [employer] network (do they accept [place] Health insurance)? yes What specialtly is this provider? When is the visit scheduled for? 10/27/24 How often you will be seeing this particular provider? Every other week Do you have friends or family who [...] Upcoming Encounters Date Type Department Care Team (Jean Carlos campos Contact Info) Description 10/27/2024 10:45 AM EDT Office Visit Orthopedics - [place] [address] [place] [address] Raj Farrell PA [address] [place] [address] documented as of this encounter Visit Diagnoses Not on filedocumented in this encounter Care Teams Profile Saw Operator Relationship Specialty Start Date End Date Roge Rodriguez MD [address] [place] [address] [address] [place] [address] PCP - General Internal Medicine 12/15/18 documented as of this encounter
--- OUTSIDE RECORDS SUMMARY | 2024-10-20 12:17 | XMS_ITS | Encounter Summary ---
Author Organization [facility] Address [address] [place] [address] Care Team Providers Care Wall Washer Name Role Phone Roge Rodriguez MD Primary Care Provider [phone] Reason for Visit * Reason Onset Date Comments PT1 10/14/2024 Encounter Details Date Type Department Care Team (Late st Contact Info) Description 10/14/2024 Telephone Internal Medicine - [place] [address] [facility] [address] [place] [phone] Roge Rodriguez MD [address] [place] [address] PT1 Social History Tobacco Use Types Packs/Day [...] Notes * Marlen Baeza MA - 10/15/2024 8:36 AM EDT Submitted * Radha Cotto - 10/14/2024 4:14 PM EDT [employer] new provider or submitter number is [id number] Verify and document patients [place] Health insurance ID # (NOT [facility] ID): [id number] Payor: COMMERCIAL INSURANCE / Plan: COMMERCIAL INSURANCE / Product Type: OTHER Patient mailing address: [address] [place] [address] Telephone Information: Work Phone Not on file. Mobile Not on file. Pt. demographics verified? yes If not accurate, update registration. Is this a NEW request or a RENEWAL? NEW Name of treating facility: [facility] Name (first & last) of treating provider? required : Dr. Cornel Monet MD What is the medical reason why the patient is seeing the above provider? Kidney failure Address/Zip code for treating provider: [address] [place] [address] Phone # for treating provider: Is the provider in the [facility] [employer] network (do they accept [place] Health insurance)? yes What specialtly is this provider? Nephrology When is the visit scheduled for? 10/21/24 How often you will be seeing this particular provider? 2x a year Do you have friends or [...] 10:45 AM EDT Office Visit Orthopedics - [place] [address] [place] [address] Raj Farrell PA [address] [place] [address] documented as of this encounter Visit Diagnoses Not on filedocumented in this encounter Care Teams Wall Washer Relationship Specialty Start Date End Date Roge Rodriguez MD [address] [address] PCP - General Internal Medicine 12/15/18 documented as of this encounter
--- OUTSIDE RECORDS SUMMARY | 2024-10-20 12:17 | XMS_ITS | Encounter Summary ---
Author Organization [facility] Address [address] [place] [address] Care Team Providers Care Piano Technician Name Role Phone Roge Rodriguez MD Primary Care Provider [phone] Encounter Details Date Type Department Care Team (Late st Contact Info) Description 11/25/2022 Orders Only [facility] Interventional Radiology [address] [place] [address] Justino Moses MD [address] [place] [address] Social History Tobacco Use Types Packs/Day Years Used Date Smoking Tobacco: Never Assessed Comments Unknown Sex and Gender Information Value Date Recorded Sex Assigned at Not on file Legal Sex Female 5:32 PM EDT Gender Identity Not on file Sexual Orientation Not on file documented as of this encounter Plan of Treatment Not on file documented as of this encounter Visit Diagnoses Not on filedocumented in this encounter Additional Health Concerns 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
[2024-10-20 18:47] LABS: Anion Gap 12 (12-20); Calcium 9.7 mg/dL (8.4-10.2); Carbon Dioxide 23 mmol/L (22-29); Chloride 110 mmol/L (96-108); Magnesium 1.6 mg/dL (1.6-2.6); Potassium 3.9 mmol/L (3.3-5.1); Sodium 141 mmol/L (135-145)
== END 2024-10-20 10:42 | disposition home or self-care (01) ==
LOC: HO.HKASLDS 10:41
PROVIDERS: Visit Provider Internal Medicine Nephrology
DX: E83.42 Hypomagnesemia (principal); E83.51 Hypocalcemia; E87.6 Hypokalemia
CPT/HCPCS: 36415; 80051; 82310; 83735

== ENCOUNTER 2024-10-21 13:44 | Outpatient (AMB) | payer OTHER, SELFPAY ==
--- NOTE | 2024-10-21 13:46 | HO.NEPHOV_ITS ---
Vital Signs 10/21/24 13:47 Height 5 ft 2 in Weight 155 lb BMI 28.3 BP 150/72 H Blood Pressure Location Rt brachial Position Sitting Intake Visit Reasons: 1 Year Accompanied by: Self / Same As Patient Allergies No Known Allergies Allergy (Verified 10/21/24 13:47) HPI Comments Details: Alba was seen for follow up for H/O severe electrolyte imbalance. 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 She has history of distal SMA occlusion. She has been found to have persistent low potassium, low calcium and low magnesium. She also has chronic diarrhea since bowel resection which has been better with medication change. She denies any nausea, vomiting. She is not known to have urinary losses. Her diarrhea is better on loperamide. She is on calcium, magnesium and potassium replacements. She is also on PPI. She has no history of excess alcohol intake. She has no chest pain, shortness of breath, proximal nocturnal dyspnea, orthopnea or pedal edema. She denied any other systemic complaints. 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) Surgical History History of tubal ligation H/O resection of small bowel Family History Mother Alzheimer disease Father Stroke Myocardial infarct Social History Patient Tobacco Use Status: Current everyday Tobacco user Review of Systems Const All systems reviewed & are unremarkable except as noted in HPI and below Physical Exam Vital Signs: Last Vital Signs BP 150/72 H 10/21/24 13:47 BMI result Body Mass Index 28.3 Const General: comfortable and no acute distress Orientation/consciousness: patient oriented x3 HEENT Head: Yes normocephalic Mouth: Normal oral and palatal mucosa present Eyes EOM: EOMs intact bilaterally Neck Neck: Yes supple Resp Auscultation: clear to auscultation bilaterally Cardio Jugular venous distension: no JVD Rate: regular rate GI Palpation (GI): Soft to palpation Auscultation: normal bowel sounds General: Yes no CVA tenderness Back/Spine/Pelvis Back: no CVA tenderness Skin General skin exam: no rashes or lesions noted Neuro General: patient oriented x3 and moves all extremities Extrem General: Yes no pedal edema Results Reviewed Nephrology Results: Sodium 141 mmol/L (135-145) 10/20/24 Potassium 3.9 mmol/L (3.3-5.1) 10/20/24 Chloride 110 mmol/L (96-108) H 10/20/24 Carbon Dioxide 23 mmol/L (22-29) 10/20/24 BUN 15 mg/dL (9-16) 07/16/23 Creatinine 0.86 mg/dL (0.5-1.4) 07/16/23 Calcium 9.7 mg/dL (8.4-10.2) 10/20/24 Assessment & Plan Assessment & Plan (1) Hypomagnesemia: Code(s): E83.42 - Hypomagnesemia Category: Medical (2) Hypocalcemia: Code(s): E83.51 - Hypocalcemia Category: Medical (3) Hypokalemia: Code(s): E87.6 - Hypokalemia Category: Medical Plan Alba has multiple electrolyte abnormalities most likely due to GI loss. She occasionally gets diarrhea. Her renal function normal. She is taking calcium, magnesium and potassium supplements. It is unlikely that she is having renal losses. I asked her to C/W current dose of loperamide. I did not make any other medication changes at this visit. All her questions and concerns were addressed. Orders: Orders Creatinine 1 Year E83.42 - Hypomagnesemia, E83.51 - Hypocalcemia, E87.6 - Hypokalemia Calcium 1 Year E83.42 - Hypomagnesemia, E83.51 - Hypocalcemia, E87.6 - Hypokalemia Magnesium 1 Year E83.42 - Hypomagnesemia, E83.51 - Hypocalcemia, E87.6 - Hypokalemia Blood Urea Nitrogen 1 Year E83.42 - Hypomagnesemia, E83.51 - Hypocalcemia, E87 .6 - Hypokalemia Electrolytes 1 Year E83.42 - Hypomagnesemia, E83.51 - Hypocalcemia, E87.6 - Hypokalemia Phosphorus 1 Year E83.42 - Hypomagnesemia, E83.51 - Hypocalcemia, E87.6 - Hypokalemia Coding Level of Care Code Est Pt Level 4 (05952) Diagnoses Hypomagnesemia E83.42 Hypocalcemia E83.51 Hypokalemia E87.6
[2024-10-21 13:47] VITALS: BP 150/72; BMI 28.3
--- OUTSIDE RECORDS SUMMARY | 2024-10-21 16:35 | XMS_ITS | Clinical Summary ---
Author Organization [facility] Address [address] [place] [address] Care Team Providers Care Reservations Sales Agent Name Role Phone Roge Rodriguez MD Primary Care Provider Allergies Active Allergy Reactions Criticality Noted Date [...] by mouth once a day. Active pancrelipase, rusood-hwjfonix-fg ylase, (Creon) 12,000-38,000 -60,000 unit capsule Take 1 capsule by mouth 3 times a day with meals. Lipase Protease- Amylase [id number] UNIT 1 capsule PO before meals Active [...] on TPN for several months at her longterm. On further discussion with her she reports [...] 2:44 PM EDT): Presenting from the [facility] with concern for confusion to [...] PM EDT): Patient presenting from the [facility] where she is currently residing [...] complete this topic Procedures * Due to [place] law, this organization might not be sharing negative HIV tests. Procedure Name Priority Date/Time Associated Diagnosis Comments HEPATITIS C ANTIBODY W/REFLEX TO HCV RNA, QUANTITATIVE PCR STAT 03/19/2023 3:26 PM EDT from Last 3 Months or Most Recently Relevant to Health Maintenance Results * Due to [place] law, this organization might not be sharing negative HIV tests. * Hepatitis C Antibody w/Reflex to HCV RNA, Quantitative PCR (03/19/2023 3:26 PM EDT) Hepatitis C Antibody NON-REACT NELSON NON-REACT NELSON 03/20/2023 12:27 AM EDT [facility] Comment: HCV antibody was non-reactive. There is no laboratory evidence of HCV infection. In most cases, no further action is required. However, if recent HCV exposure is suspected, a test for HCV RNA (test code 54100) is suggested. For additional information please refer to http://education.55social/faq/OBX66r8 (This link is being provided for informational/ educational purposes only.) Blood Structure of peripheral vein / Unknown Venipuncture / Unknown 03/19/2023 3:26 PM EDT 03/19/2023 3:26 PM EDT Narrative [facility] - 03/20/2023 12:27 AM EDT [facility] Received Date: Spencer Galeas MD LAB BLOOD ORDERABLES Final Res ult [facility] [address] [facility] [address] [facility], [place] [address], [employer] [facility] [address] [facility] 3rd [address], [place] [address], from Last 3 Months or Most Recently Relevant to Health Maintenance Additional Health Concerns Infection Onset Date Last Indicated 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
--- OUTSIDE RECORDS SUMMARY | 2024-10-21 16:35 | XMS_ITS | Encounter Summary ---
Author Organization [facility] Address [address] [place] [address] Care Team Providers Care Bag Machine Tender Name Role Phone Roge Rodriguez MD Primary Care Provider [phone] Encounter Details Date Type Department Care Team (Late st Contact Info) Description 11/25/2022 Orders Only [facility] Interventional Radiology [address] [place] [address] Justino Moses MD [address] [place] [address] Social History Tobacco Use Types Packs/Day Years [...] documented as of this encounter Care Teams Bag Machine Tender Relationship Specialty Start Date End Date Roge Rodriguez MD 175 [facility] [address] [place] [address] PCP - General Internal Medicine 11/25/22 documented as of this encounter
--- OUTSIDE RECORDS SUMMARY | 2024-10-21 16:35 | XMS_ITS | Encounter Summary ---
Author Organization [facility] Address [address] [place] [address] Care Team Providers Care Fitness Professional Name Role Phone Roge Rodriguez MD Primary Care Provider [phone] Encounter Details Date Type Department Care Team (Late st Contact Info) Description 04/23/2023 Lab Requisition [facility] Lab [address] [place] [address] Raman Jordan MD [address] [place] [address] Diarrhea, unspecified; No diagnosis Social History Tobacco [...] of this encounter Procedures * Due to [place] state law, this organization might not be sharing negative HIV tests. Procedure Name Priority Date/Time Associated Diagnosis Comments C DIFF TOXIN B PCR W/REFLEX TO GDH & TOXIN (AMBULATORY) - [facility] Routine 04/23/2023 9:51 AM EDT Diarrhea, unspecified No diagnosis C DIFFICILE GDH & TOXIN (REFLEX)-[facility]-[id number] Routine 04/23/2023 9:51 AM EDT Diarrhea, unspecified No diagnosis CBC AUTO DIFFERENTIAL Routine 04/23/2023 9:51 AM EDT Diarrhea, unspecified No diagnosis BASIC METABOLIC PANEL Routine 04/23/2023 9:51 AM EDT Diarrhea, unspecified No diagnosis documented in this encounter Results * Due to [place] state law, this organization might not be sharing negative HIV tests. * (ABNORMAL) C difficile GDH & Toxin (04/23/2023 9:51 AM EDT) C. difficile Interpretation C. difficile present, but toxin is not detected(A) No Toxigenic C. difficile detected [facility] 04/23/2023 2:[address] [facility] Comment: Interpret results considering the clinical [...] of the assay. GDH Antigen Positive(A) Negative [facility] 04/23/2023 2:[address] [facility] C difficile toxins A+B Negative Negative [facility] 04/23/2023 2:[address] [facility] Stool Rectal route / Unknown 04/23/2023 9:51 AM EDT 04/23/2023 9:51 AM EDT us Raman Jordan MD LAB BODY FLUIDS AND STOOLS O RDERABLES Final Result [facility] [address] [place] [address], [place] [phone] * (ABNORMAL) C diff Toxin B PCR w/Reflex to GDH & Toxin (04/23/2023 9:51 AM EDT) Pathologist [facility] C diff PCR Detected( A) Not Detected [employer] 04/23/2023 2:[address] [facility] Comment:Confirmatory testing with GDH Antigen and C. diff Toxin A&B to follow. Stool Rectal route / Unknown 04/23/2023 9:51 AM EDT 04/23/2023 9:[address] [facility] - 04/23/2023 2:51 PM EDT Methodology: Real-time polymerase chain reaction (PCR) to detect the toxin B gene of toxigenic Clostridioides difficile (C. difficile) in unformed (liquid or soft) stool specimens obtained from patients suspected of having C. difficile infections (CDI). Raman Jordan MD LAB BODY FLUIDS AND STOOLS O RDERABLES Final Result [facility] [address] [place] [address], * (ABNORMAL) CBC Auto Differential (04/23/2023 9:51 AM EDT) [facility] WBC 7.1 4.8 - 10.8 10*3/uL 04/23/2023 12:[address] [facility] RBC 3.66(L) 4.20 - 5.40 10*6/uL 04/23/2023 12:[address] [facility] Hemoglobin 10.3(L) 11.7 - 15.5 g/dL 04/23/2023 12:[address] [facility] Hematocrit 32.2(L) 35.7 - 45.8 % 04/23/2023 12:[address] [facility] MCV 88.0 81.0 - 99.0 fL 04/23/2023 12:[address] [facility] MCH 28.1 26.0 - 34.0 pg 04/23/2023 12:[address] [facility] MCHC 32.0 29.0 - 36.0 g/dL 04/23/2023 12:[address] [facility] RDW Standard Deviation 45.7 36.4 - 46.3 fL 04/23/2023 12:[address] [facility] RDW 14.2 11.0 - 15.0 % 04/23/2023 12:[address] [facility] Platelets 304 140 - 440 10*3/uL 04/23/2023 12:[address] [facility] MPV 11.0 7.6 - 11.6 fL 04/23/2023 12:[address] [facility] Segs % 49(L) 50 - 75 % 04/23/2023 12:[address] [facility] Immature Grans % 0.3 0.0 - 0.9 % 04/23/2023 12:[address] [facility] Segs # 3.5 1.8 - 7.7 /??L 04/23/2023 12:[address] [facility] Immature Grans # 0.02 0.00 - 0.03 10*3/uL 04/23/2023 12:[address] [facility] nRBC % 0.0 0 - 0 /100 WBCs 04/23/2023 12:[address] [facility] nRBC # 0.00 0.00 - 0.13 10*3/uL 04/23/2023 12:[address] [facility] Lymphocyte % 40 20 - 44 % 04/23/2023 12:[address] [facility] Lymphocyte # 2.81 1.00 - 4.75 10*3/uL 04/23/2023 12:[address] [facility] Monocyte % 6 0 - 14 % 04/23/2023 12:[address] [facility] Eosinophil % 5 0 - 5 % 04/23/2023 12:[address] [facility] Basophil % 0 0 - 2 % 04/23/2023 12:[address] [facility] Monocyte # 0.44 0.00 - 6.00 10*3/uL 04/23/2023 12:[address] [facility] Eosinophil # 0.36 0 - 0.8 10*3/uL 04/23/2023 12:[address] [facility] Basophil # 0.01 0.00 - 0.20 10*3/uL 04/23/2023 12:[address] [facility] Blood Structure of peripheral vein / Unknown 04/23/2023 9:51 AM EDT 04/23/2023 9:51 AM EDT us Raman Jordan MD LAB BLOOD ORDERABLES Final R esult [facility] [address] [place] [address], * (ABNORMAL) Basic Metabolic Panel (04/23/2023 9:51 AM EDT) NA 143 136 - 145 mmol/L 04/23/2023 11:[address] [facility] K 3.5 3.5 - 5.1 mmol/L 04/23/2023 11:[address] [facility] Cl 111(H) 98 - 109 mmol/L 04/23/2023 11:[address] [facility] CO2 23 23 - 32 mmol/L 04/23/2023 11:[address] [facility] BUN 10 8 - 23 mg/dL 04/23/2023 11:[address] [facility] Creatinine 0.75 0.50 - 1.12 mg/dL 04/23/2023 11:[address] [facility] Glucose 83 60 - 99 mg/dL 04/23/2023 11:[address] [facility] Calcium 10.4 8.4 - 10.4 mg/dL 04/23/2023 11:[address] [facility] Anion Gap 13 >=0 04/23/2023 11:[address] [facility] eGFR >90 >=60 mL/min/1. 73m2 04/23/2023 11:[address] [facility] Comment:The estimated glomer ular filtration rate [...] MD LAB BLOOD ORDERABLES Final R esult 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
--- OUTSIDE RECORDS SUMMARY | 2024-10-21 16:35 | XMS_ITS | Clinical Summary ---
Author Organization [facility] 444 [facility] Address [address] [place] [address] Phone Care Team Providers Care Machine Specialist Name Role Phone Roge Rodriguez MD Primary Care Provider [phone] Allergies No known active allergies Medications fluticasone [...] - 10/14/2024 11:59 PM EDT Hospital Encounter [facility] Xray [address] [place] [address] Discharge Disposition: Home or Self Care 10/14/2024 Telephone Internal Medicine [facility] [address] [phone] Roge Rodriguez MD PT1 10/14/2024 Telephone Internal Medicine [address] [phone] Roge Rodriguez MD PT1 10/14/2024 [employer] Internal Medicine [address] [address] Roge Rodriguez MD PT1 10/13/2024 3:00 PM EDT Office Visit Orthopedics [address] [address] Raj Farrell PA Primary osteoarthritis of left knee (Primary Dx); Right knee pain, unspecified chronicity; Chronic left shoulder pain 09/27/2024 Telephone Internal Medicine [address] [address] Roge Rodriguez MD DME 09/02/2024 Telephone Internal Medicine [address] [phone] Marlen Baeza [place] faxed order (L&C) 08/12/2024 11:00 AM EST Office Visit Gastroenterology - [place] 175 [facility] 175 [facility] [address] [place] [address] Chau Logan PA Passage of loose stools (Primary Dx); Norovirus; Other fatigue; Dysphagia, unspecified type 08/10/2024 8:30 AM EST Office Visit Internal Medicine - [place] 175 [facility] [address] [place] [address] Roge Rodriguez MD Loose stools (Primary Dx); Dysphagia, unspecified type; Subacute cough; H/O resection of small bowel 08/10/2024 Telephone Internal Medicine [facility] 175 [facility] [address] [place] [address] Roge Rodriguez MD 07/29/2024 Telephone Internal Medicine [facility] [address] [phone] Roge Rodriguez MD Joseph: Referral from Last [...] Name Comments Cervical cancer Aunt Diabetes Father [place], Stroke Diabetes Mother Alzheimers Dise ase Breast [...] 10:45 AM EDT Office Visit Orthopedics - [place] [address] [place] [address] Raj Farrell PA [address] [place] [address] Health Maintenance Due Date Last Done Comments [...] Signed Date: 10/14/2024 16:49 ET Workstation ID: [id number] Transcribed By: Self Edit Transcribed Date: 10/14/2024 08:42 ET Resident/PA/BUILDING SERVICES SUPERVISOR: Violet Brenner Narrative 10/14/2024 4:49 PM EDT FINDINGS: Double contrast esophagram performed. Limited exam due to patient intolerance to by mouth contrast. COMPARISON: No prior esophagram imaging HISTORY: Patient is a 63-year-old female with history of dysphagia. Job Tracer radiographs: 1 view chest x-ray demonstrates cardiac [...] a 63-year-old female with history of dysphagia. Job Tracer radiographs: 1 view chest x-ray demonstrates cardiac [...] Signed Date: 10/14/2024 16:49 ET Workstation ID: [id number] Transcribed By: Self Edit Transcribed Date: 10/14/2024 08:42 ET Resident/PA/BUILDING SERVICES SUPERVISOR: Violet Brenner Chau GUTIERREZ IMG FLUOROSCOPY PROCEDURES Renetta l Result * (ABNORMAL) CBC auto differential (08/10/2024 9:10 AM EST) [facility] WBC 8.6 4.8 - 10.8 K/mcL LAB HEMETOLOGY METHOD 08/10/2024 10:13 AM [facility] RBC 4.20 3.80 - 4.80 M/mcL LAB HEMETOLOGY METHOD 08/10/2024 10:13 AM [facility] Hemoglobin 11.6 11.5 - 16.0 g/dL LAB HEMETOLOGY METHOD 08/10/2024 10:13 AM [facility] Hematocrit 37.3 35.0 - 47.0 % LAB HEMETOLOGY METHOD 08/10/2024 10:13 AM [facility] MCV 89.7 79.0 - 98.0 FL LAB HEMETOLOGY METHOD 08/10/2024 10:13 AM [facility] MCH 27.9 27.0 - 32.0 pcg LAB HEMETOLOGY METHOD 08/10/2024 10:13 AM [facility] MCHC 31.1(L) 32.0 - 37.0 g/dL LAB HEMETOLOGY METHOD 08/10/2024 10:13 AM [facility] RDW 15.1(H) 11.0 - 15.0 % LAB HEMETOLOGY METHOD 08/10/2024 10:13 AM [facility] Platelets 308 130 - 400 K/mcL LAB HEMETOLOGY METHOD 08/10/2024 10:13 AM [facility] MPV 11.8(H) 7.0 - 11.0 FL LAB HEMETOLOGY METHOD 08/10/2024 10:13 AM [facility] NRBC 0.0 <1.0 % LAB HEMETOLOGY METHOD 08/10/2024 10:13 AM [facility] NRBC Absolute 0.00 <0.10 K/mcL LAB HEMETOLOGY METHOD 08/10/2024 10:13 AM [facility] Neutrophils Relative 56.8 % LAB HEMETOLOGY METHOD 08/10/2024 10:13 AM [facility] Lymphocytes Relative 34.8 % LAB HEMETOLOGY METHOD 08/10/2024 10:13 AM [facility] Monocytes Relative 5.9 % LAB HEMETOLOGY METHOD 08/10/2024 10:13 AM [facility] Eosinophils Relative 2.2 % LAB HEMETOLOGY METHOD 08/10/2024 10:13 AM [facility] Basophils Relative 0.1 % LAB HEMETOLOGY METHOD 08/10/2024 10:13 AM [facility] Immature Granulocytes Relative 0.2 % LAB HEMETOLOGY METHOD 08/10/2024 10:13 AM [facility] Neutrophils Absolute 4.87 1.50 - 7.00 K/mcL LAB HEMETOLOGY METHOD 08/10/2024 10:13 AM [facility] Lymphocytes Absolute 2.99 1.00 - 5.00 K/mcL LAB HEMETOLOGY METHOD 08/10/2024 10:13 AM [facility] Monocytes Absolute 0.51 0.20 - 1.00 K/mcL LAB HEMETOLOGY METHOD 08/10/2024 10:13 AM [facility] Eosinophils Absolute 0.19 0.00 - 0.50 K/mcL LAB HEMETOLOGY METHOD 08/10/2024 10:13 AM EST [facility] Basophils Absolute 0.01 0.00 - 0.20 K/[facility] LAB HEMETOLOGY METHOD 08/10/2024 10:13 AM EST [facility] Immature Granulocytes Absolute 0.02 0.00 - 0.03 K/[facility] LAB HEMETOLOGY METHOD 08/10/2024 10:13 AM EST [facility] Blood Venous blood specimen / Unknown Venipuncture / Unknown 08/10/2024 9:10 AM EST 08/10/2024 9:10 AM EST us Roge Rodriguez MD LAB BLOOD ORDERABLES Final Resul t Performing Organization Address City/[facility]/ZIP Co de Phone Number [facility] [address] [place] [address], [place] [phone] * Thyroid stimulating hormone (08/10/2024 9:10 AM EST) TSH 1.61 0.40 - 4.00 mcIU/mL LAB CHEMISTRY METHOD 08/10/2024 10:42 AM EST [facility] Blood Venous blood specimen / Unknown Venipuncture / Unknown 08/10/2024 9:10 AM EST 08/10/2024 9:10 AM EST us Roge Rodriguez MD LAB BLOOD ORDERABLES Final Resul t [facility] [address] [place] [address], [place] [phone] * (ABNORMAL) Magnesium (08/10/2024 9:10 AM EST) Magnesium 1.5(L) 1.9 - 2.6 mg/dL LAB CHEMISTRY METHOD 08/10/2024 10:34 AM EST [facility] Blood Venous blood specimen / Unknown Venipuncture / Unknown 08/10/2024 9:10 AM EST 08/10/2024 9:10 AM EST us Roge Rodriguez MD LAB BLOOD ORDERABLES Final Resul t [facility] [address] [place] [address], [place] [phone] * (ABNORMAL) Comprehensive metabolic panel (08/10/2024 9:10 AM EST) Sodium 139 133 - 145 mmol/L LAB CHEMISTRY METHOD 08/10/2024 10:41 AM [facility] Potassium 4.4 3.5 - 5.5 mmol/L LAB CHEMISTRY METHOD 08/10/2024 10:41 AM [facility] Chloride 109 96 - 110 mmol/L LAB CHEMISTRY METHOD 08/10/2024 10:41 AM [facility] CO2 26 21 - 32 mmol/L LAB CHEMISTRY METHOD 08/10/2024 10:41 AM [facility] Anion Gap 4 3 - 11 LAB CHEMISTRY METHOD 08/10/2024 10:41 AM [facility] Glucose 79 70 - 100 mg/dL LAB CHEMISTRY METHOD 08/10/2024 10:41 AM [facility] BUN 13 5 - 25 mg/dL LAB CHEMISTRY METHOD 08/10/2024 10:41 AM [facility] Creatinine 0.90 0.50 - 1.10 mg/dL LAB CHEMISTRY METHOD 08/10/2024 10:41 AM [facility] eGFR 72 >=60 mL/min/1. 73m2 LAB CHEMISTRY METHOD 08/10/2024 10:41 AM [facility] Comment:Calculation based on the??Chronic Kidney Disease Epidemiology Collaboration (CKD-EPI) equation refit??without adjustment for race. BUN/Creatinine Ratio 14.4 LAB CHEMISTRY METHOD 08/10/2024 10:41 AM [facility] Calcium 9.7 8.5 - 10.5 mg/dL LAB CHEMISTRY METHOD 08/10/2024 10:41 AM [facility] AST (SGOT) 13 10 - 42 unit/L LAB CHEMISTRY METHOD 08/10/2024 10:41 AM [facility] ALT (SGPT) 19 10 - 60 unit/L LAB CHEMISTRY METHOD 08/10/2024 10:41 AM [facility] Alkaline Phosphatase 133(H) 42 - 121 unit/L LAB CHEMISTRY METHOD 08/10/2024 10:41 AM [facility] Total Protein 7.5 6.0 - 8.0 g/dL LAB CHEMISTRY METHOD 08/10/2024 10:41 AM [facility] Albumin 3.8 3.2 - 5.0 g/dL LAB CHEMISTRY METHOD 08/10/2024 10:41 AM [facility] Total Bilirubin 0.3 0.0 - 1.4 mg/dL LAB CHEMISTRY METHOD 08/10/2024 10:41 AM [facility] Blood Venous blood specimen / Unknown Venipuncture / Unknown 08/10/2024 9:10 AM EST 08/10/2024 9:10 AM EST us Roge Rodriguez MD LAB BLOOD ORDERABLES Final Resul t [facility] [address] [place] [address], * MAXINE SCREENING DIGITAL (10/02/2023 10:58 AM EDT) Anatomical Region Laterality Modality Mammography 10/02/2023 8:37 AM EDT Narrative 10/02/2023 10:58 AM EDT [facility] Diagnostic Imaging Department [address] [place] [address] Patient: ??ALBA VYAS ?/Age/Sex: 1960 - 62 - F Unit#: ??[id number] ? Location/Status: ??SPDIMAM/REG CLI ? Mnemonic/Ordering Site: ??DIGSC/SPMAM Ordering Physician: ??ROGE RODRIGUEZ MD [facility] Screening Digital - 10/02/23 - 0857 Report Status:Signed EXAM: [facility] Screening Digital EXAM DATE AND TIME: 10/02/2023 8:58 AM HISTORY: ??Screening. Previous bilateral cyst aspirations. Patient states 45 pound weight loss since last mammogram. COMPARISON: ??04/25/22, 02/02/21, 10/17/18 TECHNIQUE: Bilateral digital breast tomosynthesis was performed in the CC and MLO projections. Computer aided detection with [employer] 3D 3.1 was employed. TISSUE DENSITY: a. [...] 03/01/2024 [facility] Diagnostic Imaging Department [address] [place] [id number] Patient: ALBA VYAS /Age/Sex: 1960 - 62 - F Unit#: [id number] Location/Status: SPDIMAM/REG CLI Mnemonic/Ordering Site: [facility] Ordering Physician: ROGE RODRIGUEZ MD [facility] Screening Digital - 10/02/23 - 0857 Report Status:Signed EXAM: [facility] Screening Digital EXAM DATE AND TIME: 10/02/2023 8:58 AM HISTORY: Screening. Previous bilateral cyst aspirations. Patient [id number] pound weight loss since last mammogram. COMPARISON: 04/25/22, 02/02/21, 10/17/18 TECHNIQUE: Bilateral digital breast tomosynthesis was performed in the CCand MLO projections. Computer aided detection with [employer] 3D 3.1was employed. TISSUE DENSITY: a. The [...] RESULTING AGENCY - 07/23/2018 11:28 AM EST [id number] THINPREP PAP, IMAGED: NEGATIVE FOR SQUAMOUS INTRAEPITHELIAL [...] to Health Maintenance Insurance [employer] Care Teams Machine Specialist Relationship Specialty Start Date End Date Roge Rodriguez MD [address] [address] PCP - General Internal Medicine 12/15/18
--- OUTSIDE RECORDS SUMMARY | 2024-10-21 16:35 | XMS_ITS | Clinical Summary ---
Author Organization [facility] Facility Address [address] [address] Care Team Providers Care Command Post Craftsman Name Role Phone Roge Rodriguez MD Primary Care Provider [phone] Social History Tobacco Use Types Packs/Day Years [...] age to complete this topic Pneumococcal Vaccine: Peds ( 0 to 5 Years) and At-Risk Patients (6 to 49 Years) Aged Out No longer eligible b ased on patient's age to complete this topic [place] [address] Medicaid Medicaid [place] Care Teams Command Post Craftsman Relationship Specialty Start Date End Date Roge Rodriguez MD [address] [place] [id number] PCP - General Internal Medicine 05/29/22
--- OUTSIDE RECORDS SUMMARY | 2024-10-21 16:35 | XMS_ITS | Clinical Summary ---
Author Organization [facility] Address [address] [place] [address] Care Team Providers Care Senior Case Manager Name Role Phone Roge Rodriguez MD [...] age to complete this topic Care Teams Senior Case Manager Relationship Specialty Start Date End Date Roge Rodriguez MD PCP - General Internal Medicine 07/03/23
--- OUTSIDE RECORDS SUMMARY | 2024-10-21 16:35 | XMS_ITS | Referral Summary ---
Author Organization [facility] Address [address] [place] [address] Care Team Providers Care Pharmacy Operations Specialist Name Role Phone Roge Rodriguez MD Primary Care Provider [phone] Allergies Active Allergy Reactions Criticality Noted Date [...] by mouth once a day. Active pancrelipase, qerfee-mbifkhjx-ce ylase, (Creon) 12,000-38,000 -60,000 unit capsule Take 1 capsule by mouth 3 times a day with meals. Lipase Protease- Amylase [address] UNIT 1 capsule PO before meals Active [...] [facility]. On further discussion with her she reports [...] (04/15/2023 2:44 PM EDT): Presenting from the [facility] with concern for confusion to be off [...] 11:20 PM EDT): Patient presenting from the [facility] where she is currently residing with concern [...] Not on file Procedures * Due to [place] DataContact law, this organization might not be sharing negative HIV tests. Procedure Name Priority Date/Time Associated Diagnosis Comments HEPATITIS C ANTIBODY W/REFLEX TO HCV RNA, QUANTITATIVE PCR STAT 03/19/2023 3:26 PM EDT from Last 3 Months or Most Recently Relevant to Health Maintenance Results * Due to [place] DataContact law, this organization might not be sharing negative HIV tests. * Hepatitis C Antibody w/Reflex to HCV RNA, Quantitative PCR (03/19/2023 3:26 PM EDT) Hepatitis C Antibody NON-REACT NELSON NON-REACT NELSON 03/20/2023 12:27 AM EDT [facility] Comment: HCV antibody was non-reactive. There is no laboratory evidence of HCV infection. In most cases, no further action is required. However, if recent HCV exposure is suspected, a test for HCV RNA (test code 87926) is suggested. For additional information please refer to http://education.[employer]faq/IEW87q9 (This link is being provided for informational/ educational purposes only.) Blood Structure of peripheral vein / Unknown Venipuncture / Unknown 03/19/2023 3:26 PM EDT 03/19/2023 3:26 PM EDT Narrative [facility] - 03/20/2023 12:27 AM EDT [facility] Received Date: us Spencer Galeas MD LAB BLOOD ORDERABLES Final Res ult [facility] [address] [facility] [address] Floor, [place] [address], [place] [phone] [employer] [facility] [address] [facility] [address], [place] [address], [place] [phone] from Last 3 Months or Most Recently Relevant to Health Maintenance Additional Health Concerns 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
== END 2024-10-21 13:58 | disposition home or self-care (01) ==
LOC: HO.HKAS 13:44
PROVIDERS: PCP Internal Medicine; Visit Provider Internal Medicine Nephrology
DX: E83.42 Hypomagnesemia (principal); E83.51 Hypocalcemia; E87.6 Hypokalemia
CPT/HCPCS: 99214

== ENCOUNTER → 2024-10-21 13:44 | Outpatient (BNVA) | payer OTHER, SELFPAY | PROVIDERS: PCP Internal Medicine; Visit Provider Internal Medicine Nephrology | DX: E83.42 Hypomagnesemia (principal); E83.51 Hypocalcemia; E87.6 Hypokalemia | CPT/HCPCS: 99212 ==